=== PATIENT | male | born 1945 | race Caucasian/White ===

== ENCOUNTER 2019-10-24 14:17 | Emergency (ER) | payer OTHER ==
--- NOTE | 2019-10-24 15:10 | ED Physician Documentation ---
History of Present Illness - Stated complaint Stated Complaint: WEAKNESS - Chief complaint Chief Complaint: Neuro - History obtained from History obtained from: Patient - Additonal information Additional information: 74-year-old male presents to the emergency department for generalized weakness. He is a poor historian and I am unable to tell if he is confused at baseline. He reports that he has fallen to the ground twice in the last week and been unable to get up. I am not clear if these are mechanical falls or if he has had syncope.His responses are slow when questioned but he does seem to know that he is here at the hospital in [place]. He denies chest pain abdominal pain vomiting or diarrhea. He states that he takes 2 medications Paxil and amlodipine. He thinks there may be more but he is not sure. Review of Systems Unable to obtain: Other (? pt confusion) PD PAST MEDICAL HISTORY - Past Medical History Past Medical History: No - Past Surgical History Past Surgical History: Yes - Present Medications Home Medications: Ambulatory Orders Medication Instructions Recorded Confirmed Home Medications Unobtainable 10/24/19 10/24/19 [HOME MEDICATIONS UNOBTAINABLE] - Allergies Allergies/Adverse Reactions: Allergies Allergy/AdvReac Type Severity Reaction Status Date / Time No Known Drug Allergies Allergy Verified 10/24/19 14:29 - Social History Does the pt smoke?: No Smoking Status: Never smoker Does the pt drink ETOH?: No Does the pt have substance abuse?: No - Immunizations Immunizations are current?: Yes PD ED PE EXPANDED - General General: Alert, No acute distress - Neck Neck: No tenderness. No: Adenopathy - Cardiac Cardiac: Regular Rate, Regularly irregular, Radial strong equal, Femoral strong equal, Pedal strong equal, Cap refill < 2 sec - Respiratory Respiratory: Clear to ausultation johny. No: Distress, Labored - Abdomen Abdomen: Normal Bowel sounds. No: Tender to palpation, Rebound, Guarding - Derm Derm: Normal color, Pale - Extremities Extremities: Normal. No: Pedal edema R, Pedal edema L, Pedal edema bilateral - Neuro Neuro: Alert and Oriented X 3, CNII-XII intact, Normal finger nose, Normal speech. No: Nystagmus - GCS Eye Opening: Spontaneous Motor: Obeys Commands Verbal: Oriented Total: 15 Results - Vitals Vitals: Vital Signs - 24 hr 10/24/19 10/24/19 10/24/19 14:25 15:29 16:00 Temperature 36.4 C L Heart Rate 86 71 68 Respiratory 16 17 18 Rate Blood Pressure 123/82 H 126/74 128/69 O2 Saturation 96 99 98 10/24/19 10/24/19 10/24/19 16:14 16:30 16:58 Temperature Heart Rate 70 69 71 Respiratory 20 19 16 Rate Blood Pressure 128/69 118/68 118/68 O2 Saturation 99 100 99 Oxygen O2 Source Room air - EKG (time done) 1427 Rate: Rate (enter#) (83) Rhythm: NSR [place]: Normal Intervals: Normal CT QRS: Normal Ischemia: Non specific changes, Other Compare to prior EKG: Old EKG unavailable (Mobilized T wave flattening) - Labs Labs: Laboratory Tests 10/24/19 10/24/19 10/24/19 16:23 16:23 16:23 WBC 11.8 H RBC 4.35 L Hgb 13.3 L Hct 39.4 L MCV 90.6 MCH 30.6 MCHC 33.8 RDW 13.7 Plt Count 172 MPV 11.8 H Neut # (Auto) 9.9 H Lymph # (Auto) 0.8 L Kem[place] # (Auto) 1.1 H Eos # (Auto) 0.0 Baso # (Auto) 0.0 Absolute Nucleated RBC 0.00 Nucleated RBC % 0.0 Sodium 143 Potassium 3.6 Chloride 102 Carbon Dioxide 30 Anion Gap 11.0 BUN 46 H Creatinine 1.2 Estimated GFR (MDRD) 59 L Glucose 140 H Calcium 9.3 Total Bilirubin 1.2 H AST 33 ALT 25 Alkaline Phosphatase 56 Troponin I High Sens 10.1 Total Protein 7.6 Albumin 4.1 Globulin 3.5 Albumin/Globulin Ratio 1.2 Lipase 28 TSH 10/24/19 16:23 WBC RBC Hgb Hct MCV MCH MCHC RDW Plt Count MPV Neut # (Auto) Lymph # (Auto) [place] # (Auto) Eos # (Auto) Baso # (Auto) Absolute Nucleated RBC Nucleated RBC % Sodium Potassium Chloride Carbon Dioxide Anion Gap BUN Creatinine Estimated GFR (MDRD) Glucose Calcium Total Bilirubin AST ALT Alkaline Phosphatase Troponin I High Sens Total Protein Albumin Globulin Albumin/Globulin Ratio Lipase TSH 1.42 - Rads (name of study) CT head Radiology: Final report received (Normal cerebral volume loss and chronic microvascular ischemic changes. Greater than expected ventriculomegaly related to the underlying volume loss raising question of adult hydrocephalus normal pressure hydrocephalus.) PD MEDICAL DECISION MAKING - ED course Complexity details: reviewed results, d/w patient ED course: 74-year-old gentleman presents to the emergency department for what he reports as weakness in his knees. It seems that over the last few months he has become more confused and he reports that he is falling more frequently. This is corroborated by speaking with his neighbors who are frequently involved in helping him with paying for bills and grocery shopping. - His labs today are without any focal findings. However the head CT shows some ventriculomegaly concerning for normal pressure hydrocephalus. - 1708: paging neurology [facility] 1725: I have spoken with Neurologist Dr. Rommel santos with the [facility]. [facility] Given the chronicity of his symptoms and the gradual decli ne over time she does not feel that emergent transfer is necessary today. She reports that the neurology department at the [facility] will call the patient tomorrow to arrange follow-up. - With the patient's permission I have discussed this ED visit his labs and a head CT findings with his friend Naun who has been assisting him at home. I have advised that the [facility] will be calling to arrange follow-up with the neurology department. I have also advised that the patient should be scheduled to see his primary care provider very soon. He is to return to the emergency department for worsening symptoms, any focal neuro deficits, fevers or if they feel that he is not safe at home. - Patient has ambulated with the RN at the bedside. He typically uses a walker when at home. Patient was advised to always use the walker while at home Departure - Departure Disposition: 01 Home, Self Care Clinical Impression: Weakness, Hydrocephalus in adult Condition: Serious Record reviewed to determine appropriate education?: Yes Comments: Karel it is very important that you schedule follow-up with your primary care doctor as soon as possible. Your head CT shows that you may be developing a condition called to hydrocephalus which is a mild swelling in the ventricles of the brain. I have spoken with the neurologist at the [facility] their office will be giving you a call tomorrow to arrange follow-up. Always use your walker when walking at home. If you feel that your weakness is worsening, you have worsening confusion any fevers or weakness in your arms or legs then please return immediately to the emergency department
--- NOTE | 2019-10-24 15:11 | XRAY Report ---
PROCEDURE: Chest 1 View X-Ray INDICATIONS: Chest Pain TECHNIQUE: One view of the chest was acquired. COMPARISON: None available FINDINGS: Surgical changes and devices: None. Lungs and pleura: No pleural effusions or pneumothorax. Lungs are clear. Mediastinum: Mediastinal contours appear normal. Tortuous and atherosclerotic thoracic aorta. Heart size is normal. Bones and chest wall: No suspicious bony lesions. Moderate degenerative disease in the glenohumeral joint on the left. Overlying soft tissues appear unremarkable. IMPRESSION: No acute cardiopulmonary disease. Reviewed by: Liz Otto MD on 10/24/2019 2:09 PM [facility] Approved by: Liz Otto MD on 10/24/2019 2:09 PM [facility] Station ID: [id number]
--- NOTE | 2019-10-24 15:45 | CT Report ---
PROCEDURE: HEAD WO INDICATIONS: Confusion TECHNIQUE: Noncontrast 4.5 mm thick angled axial sections acquired from the foramen magnum to the vertex. For r adiation dose reduction, the following was used: automated exposure control, adjustment of mA and/or kV according to patient size. COMPARISON: None. FINDINGS: Image quality: Excellent. CSF spaces: There is global cerebral volume loss with passive expansion of the ventricles and extra- axial spaces. The degree of ventricular enlargement appears subjectively greater than expected in pro portion to the underlying volume loss, raising question of adult hydrocephalus (normal pressure hydro cephalus). There is no extra-axial fluid collection. Brain: Mild to moderate chronic microvascular ischemic changes are present. No evidence of cerebral e benita or acute ischemia. No acute intracranial hemorrhage demonstrated. Skull and face: Calvarium and visualized facial bones are intact, without suspicious lesions. Sinuses: Visualized sinuses and mastoids are clear. IMPRESSION: Normal cerebral volume loss and chronic microvascular ischemic changes. Greater than exp ected ventriculomegaly related to the underlying volume loss, raising question of adult hydrocephalus (normal pressure hydrocephalus). Correlate with clinical symptoms. CSF pressure measurement may be h elpful. Reviewed by: Delvis Lunsford MD on 10/24/2019 3:44 PM PDT Approved by: Delvis Lunsford MD on 10/24/2019 3:44 PM PDT Station ID: [id number]
[2019-10-24 16:32] LABS: BASOPHILS % (AUTO) 0.3 %; EOSINOPHILS % (AUTO) 0.1 %; HGB - HEMOGLOBIN 13.3 g/dL (14.0-18.0); LYMPHOCYTES # (AUTO) 0.8 10^3/uL (1.5-3.5); LYMPHOCYTES % (AUTO) 6.5 %; MEAN CORPUSCULAR HEMOGLOBIN 30.6 pg (27.0-31.0); MEAN CORPUSCULAR HGB CONC 33.8 g/dL (32.0-36.0); MEAN CORPUSCULAR VOLUME 90.6 fL (80.0-94.0); MEAN PLATELET VOLUME 11.8 fL (7.4-11.4); MONOCYTES # (AUTO) 1.1 10^3/uL (0.0-1.0); MONOCYTES % (AUTO) 9.3 %; NEUTROPHILS # (AUTO) 9.9 10^3/uL (1.5-6.6); NEUTROPHILS % (AUTO) 83.4 %; PLT - PLATELET COUNT 172 10^3/uL (130-450); RED BLOOD COUNT 4.35 10^6/uL (4.70-6.10); RED CELL DISTRIBUTION WIDTH 13.7 % (12.0-15.0); WHITE BLOOD COUNT 11.8 x10^3/uL (4.8-10.8)
[2019-10-24 16:43] LABS: ALBUMIN 4.1 g/dL (3.2-5.5); ALBUMIN/GLOBULIN RATIO 1.2 (1.0-2.2); BILIRUBIN,TOTAL 1.2 mg/dL (0.2-1.0); CALCIUM 9.3 mg/dL (8.5-10.3); CREATININE 1.2 mg/dL (0.6-1.2); TOTAL PROTEIN 7.6 g/dL (6.7-8.2)
[2019-10-24 18:55] VITALS: BP 113/71
== END 2019-10-24 18:57 | disposition home or self-care (01) ==
LOC: EDUNIT# → ED 14:17
DX: G91.9 Hydrocephalus, unspecified (principal); R53.1 Weakness; Z74.09 Other reduced mobility; Z91.81 History of falling
CPT/HCPCS: 70450; 71045; 80053; 83690; 84443; 84484; 85025; 93005; 99281; 99284

== ENCOUNTER 2020-03-15 04:13 | Emergency (ER) | payer OTHER ==
--- NOTE | 2020-03-15 04:23 | ED Physician Documentation ---
PD HPI UPPER EXT INJURY - Stated complaint Stated Complaint: RT SHOULDER PX - History obtained from History obtained from: Patient - History of Present Illness Location: Right, Shoulder Type of injury: No: Fall, Twist Where injury occurred: Home Timing - onset: How many days ago (He states his right posterior shoulder has been hurting him for the last several days and significantly increased overnight tonight and awoke him. Denies fall or abrupt injury. He does walk with a walker.) Timing - duration: Days Timing - details: Gradual onset, Waxing and waning Worsened by: Moving. No: Palpating Associated symptoms: No: Weakness, Numbness, Swelling Similar symptoms before: Diagnosis (rotator cuff tendonitis and arthritis in the past.) Recently seen: Not recently seen Review of Systems Constitutional: denies: Fever, Chills Nose: denies: Rhinorrhea / runny nose, Congestion Throat: denies: Sore throat Respiratory: denies: Cough GI: denies: Nausea, Vomiting, Diarrhea Skin: denies: Rash, Lesions Musculoskeletal: reports: Joint pain (right posterior shoulder) Neurologic: denies: Focal weakness, Numbness PD PAST MEDICAL HISTORY - Past Medical History Musculoskeletal: Osteoarthritis Derm: None - Past Surgical History Past Surgical History: Yes - Present Medications Home Medications: Ambulatory Orders Medication Instructions Recorded Confirmed HYDROcod/ACETAM 5/325 [[place] 5/325] 1 ea PO Q6H PRN #12 tablet 03/15/20 Naproxen Sodium 275 mg PO BID #15 tablet 03/15/20 - Allergies Allergies/Adverse Reactions: Allergies Allergy/AdvReac Type Severity Reaction Status Date / Time No Known Drug Allergies Allergy Verified 03/15/20 04:30 - Social History Does the pt smoke?: No Smoking Status: Never smoker Does the pt drink ETOH?: No Does the pt have substance abuse?: No - Immunizations Immunizations are current?: Yes PD ED PE NORMAL - Vitals Vital signs reviewed: Yes - General General: Alert and oriented X 3, No acute distress, Well developed/nourished - Neck Neck: Supple, no meningeal sign, No bony TTP, No adenopathy - Cardiac Cardiac: RRR, No murmur - Respiratory Respiratory: Clear bilaterally - Abdomen Abdomen: Soft, Non tender - Derm Derm: Normal color, Warm and dry - Extremities Extremities: Other (The right shoulder has some guarding of range of motion for abduction and he is limited for overhead and not above 90 degrees. There are some tenderness in the posterior aspect of the shoulder. No effusion. No redness no rash. No obvious deformity.) - Neuro Neuro: No motor deficit, No sensory deficit Results - Vitals Vitals: Vital Signs - 24 hr 03/15/20 03/15/20 03/15/20 04:15 04:27 05:49 Temperature 36.4 C L 36.4 C L 36.6 C Heart Rate 61 64 62 Respiratory 18 18 18 Rate Blood Pressure 116/66 116/66 115/63 O2 Saturation 100 100 Oxygen O2 Source Room air - Rads (name of study) right shoulder Radiology: Prelim report reviewed (No acute fractures or dislocation. Significant calcific tendinosis and arthritis of the joint.), See rad report PD MEDICAL DECISION MAKING - ED course Complexity details: reviewed results (calcific changes in rotator cuff. No fractures acutely. ), considered differential, d/w patient Departure - Departure Disposition: 01 Home, Self Care Clinical Impression: Calcific tendonitis of right shoulder region Right shoulder pain Qualifiers: Chronicity: chronic Qualified Code(s): M25.511 - Pain in right shoulder Condition: Stable Record reviewed to determine appropriate education?: Yes Instructions: ED Tendinitis Calcific Follow-Up: Karel Alfred MD [Provider Admit Priv/Credential] - Prescriptions: Naproxen Sodium 275 mg PO BID #15 tablet HYDROcod/ACETAM 5/325 [[place] 5/325] 1 ea PO Q6H PRN #12 tablet PRN Reason: Pain Comments: Your x-ray does not show any fractures nor dislocation. However there is a lot of arthritis in the shoulder and signs of parts counterman tendinitis with calcification. I presume this is flaring up now. As such some of the basis for treatment can be gentle range of motion and exercise without any heavy use of the shoulder. Anti-inflammatories may improve it in the short-term so use the naproxen twice daily for a week or so. Use it with food to not bother your stomach. To that add Tylenol 500 mg 4 times a day for pain. You can instead use hydrocodone every 6 hours if needed for worse pain in particular before bedtime. Follow-up with your primary care or orthopedics regarding further treatment of t he shoulder. Discharge Date/Time: 03/15/20 06:09
[2020-03-15] MEDS ORDERED: HYDROcod/ACETAM 5/325 MG TABLET PO STA (04:39)
[2020-03-15] MEDS ORDERED: HYDROcod/ACET 5/325 Prepack 4 PO STA (05:27)
[2020-03-15] MEDS ORDERED: DEXAMETHASONE 10 MG/ML VIAL PO STA (05:27)
[2020-03-15] MEDS ORDERED: CHERRY SYRUP 10 ML UDC PO ONE (05:27)
[2020-03-15 05:52] VITALS: BP 115/63
--- NOTE | 2020-03-15 07:09 | XRAY Report ---
PROCEDURE: Shoulder 3 View RT INDICATIONS: shoulder pain for a week, worsening TECHNIQUE: 3 views of the shoulder were acquired. COMPARISON: None. FINDINGS: Bones: No fractures or dislocations. No suspicious bony lesions. Visualized ribs appear intact. Advanced degenerative changes are seen, with severe glenohumeral joint space narrowing, with associat ed remodeling changes. Fragmented osteophytes are seen. Milder degenerative changes are seen elsewher e. Soft tissues: No suspicious soft tissue calcifications. The visualized lung demonstrates a normal a ppearance. IMPRESSION: No acute abnormality is seen. Severe glenohumeral joint degenerative change. Note: No significant discrepancy from the preliminary report. Reviewed by: Indra Moreland MD on 03/15/2020 6:08 AM [facility] Approved by: Indra Moreland MD on 03/15/2020 6:08 AM [facility] Station ID: [id number]
== END 2020-03-15 06:09 | disposition home or self-care (01) ==
LOC: EDBD → ED 04:13
DX: M75.31 Calcific tendinitis of right shoulder (principal)
CPT/HCPCS: 73030; 99283; 99284; A9270

== ENCOUNTER 2020-08-20 19:33 | Outpatient (CLI) | payer OTHER | END 2020-08-20 19:34 | disposition critical access hospital (66) | LOC: EMS 19:33 | DX: R29.810 Facial weakness (principal); G81.94 Hemiplegia, unspecified affecting left nondominant side | CPT/HCPCS: A0425; A0429 ==

== ENCOUNTER 2020-08-20 19:47 | Emergency (ER) | payer OTHER ==
[2020-08-20] MEDS ORDERED: SODIUM CHLORIDE 0.9% 1,000 ML IV STA (19:49)
--- NOTE | 2020-08-20 20:22 | ED Physician Documentation ---
History of Present Illness - Stated complaint Stated Complaint: POSS STROKE - History obtained from History obtained from: Patient, EMS - Additonal information Additional information: 75-year-old man with history of Parkinson's, CVA, seizure disorder, living independently at home, presents with facial droop, left-sided weakness, and difficulty speaking for an indeterminate amount of time. He states that he fell at 6 PM and then was able to get back up and does think that he may have hit his head without LOC. A friend checked on him at 7 PM and then called 911. When asked exactly when his symptoms started, the patient is unable to specify but states that he thinks it may have been in the afternoon. Further history limited by patient acuity. Review of Systems Unable to obtain: Other (Review of systems limited by patient acuity) PD PAST MEDICAL HISTORY - Past Medical History Musculoskeletal: Osteoarthritis Derm: None - Past Surgical History Past Surgical History: Yes - Present Medications Home Medications: Ambulatory Orders Medication Instructions Recorded Confirmed HYDROcod/ACETAM 5/325 [[place] 5/325] 1 ea PO Q6H PRN #12 tablet 03/15/20 Naproxen Sodium 275 mg PO BID #15 tablet 03/15/20 Aspirin [Aspirin EC] 81 mg PO DAILY 08/20/20 08/20/20 Atenolol [Tenormin] 100 mg PO DAILY 08/20/20 08/20/20 Ezetimibe/Simvastatin 10 mg PO DAILY 08/20/20 08/20/20 [Ezetimibe-Simvastatin 10-10 mg] PARoxetine [Paxil] 40 mg PO DAILY 08/20/20 08/20/20 amLODIPine [Norvasc] 5 mg PO DAILY 08/20/20 08/20/20 - Allergies Allergies/Adverse Reactions: Allergies Allergy/AdvReac Type Severity Reaction Status Date / Time No Known Drug Allergies Allergy Verified 08/20/20 20:07 - Social History Does the pt smoke?: No Smoking Status: Never smoker Does the pt drink ETOH?: No Does the pt have substance abuse?: No - Immunizations Immunizations are current?: Yes - POLST Patient has POLST: No PD ED PE NORMAL - Vitals Vital signs reviewed: Yes - General General: Alert and oriented X 3, No acute distress, Well developed/nourished - HEENT HEENT: Atraumatic, PERRL, EOMI - Neck Neck: Supple, no meningeal sign - Cardiac Cardiac: RRR - Respiratory Respiratory: No respiratory distress, Clear bilaterally - Abdomen Abdomen: Non tender, Non distended - Derm Derm: Normal color - Extremities Extremities: No deformity - Neuro Neuro: Alert and oriented X 3, Other (Right-sided facial droop and left upper extremity drift to gravity. Mild aphasia. Cranial nerves II through XII otherwise intact, normal cerebellar testing) - Psych Psych: Normal mood, Normal affect Results - Vitals Vitals: Vital Signs - 24 hr 08/20/20 08/20/20 08/20/20 20:07 20:24 20:48 Temperature 36.6 C 36.6 C Heart Rate 71 71 73 Respiratory 16 16 24 Rate Blood Pressure 117/61 117/61 120/65 O2 Saturation 96 96 94 08/20/20 08/20/20 08/20/20 21:18 21:30 22:00 Temperature 36.5 C Heart Rate 75 79 76 Respiratory 20 22 24 Rate Blood Pressure 128/73 124/83 H 137/84 H O2 Saturation 100 98 92 08/20/20 08/20/20 22:30 23:00 Temperature 36.5 C Heart Rate 74 84 Respiratory 20 24 Rate Blood Pressure 132/86 H 125/91 H O2 Saturation 96 98 Oxygen O2 Source Room air - Labs Labs: Laboratory Tests 08/20/20 08/20/20 08/20/20 20:28 20:28 20:28 WBC 9.5 RBC 4.24 L Hgb 13.3 L Hct 38.4 L MCV 90.6 MCH 31.4 H MCHC 34.6 RDW 12.8 Plt Count 157 MPV 11.5 H Neut # (Auto) 6.8 H Lymph # (Auto) 1.5 [place] # (Auto) 0.8 Eos # (Auto) 0.3 Baso # (Auto) 0.0 Absolute Nucleated RBC 0.00 Nucleated RBC % 0.0 Sodium 135 Potassium 4.1 Chloride 100 L Carbon Dioxide 27 Anion Gap 8.0 BUN 27 H Creatinine 1.3 H Estimated GFR (MDRD) 54 L Glucose 100 Calcium 9.1 Total Bilirubin 1.2 H AST 19 ALT 13 Alkaline Phosphatase 58 Troponin I High Sens 4.8 Total Protein 7.3 Albumin 4.0 Globulin 3.3 Albumin/Globulin Ratio 1.2 Lipase 22 Nasal Adenovirus (PCR) Nasal B. parapertussis DNA (PCR) Nasal Coronavir 229E PCR Nasal Coronavir HKU1 PCR Nasal Coronavir NL63 PCR Nasal Coronavir OC43 PCR Nasal Enterovir/Rhinovir PCR Nasal Influenza B PCR Nasal Influenza A PCR Nasal Parainfluen 1 PCR Nasal Parainfluen 2 PCR Nasal Parainfluen 3 PCR Nasal Parainfluen 4 PCR Nasal RSV (PCR) Nasal B.pertussis DNA PCR Nasal C.pneumoniae (PCR) Garrett Human Metapneumo PCR Nasal M.pneumoniae (PCR) Nasal SARS-CoV-2 (PCR) 08/20/20 20:42 WBC RBC Hgb Hct MCV MCH MCHC RDW Plt Count MPV Neut # (Auto) Lymph # (Auto) [place] # (Auto) Eos # (Auto) Baso # (Auto) Absolute Nucleated RBC Nucleated RBC % Sodium Potassium Chloride Carbon Dioxide Anion Gap BUN Creatinine Estimated GFR (MDRD) Glucose Calcium Total Bilirubin AST ALT Alkaline Phosphatase Troponin I High Sens Total Protein Albumin Globulin Albumin/Globulin Ratio Lipase Nasal Adenovirus (PCR) NOT DETECTED Nasal B. parapertussis DNA (PCR) NOT DETECTED Nasal Coronavir 229E PCR NOT DETECTED Nasal Coronavir HKU1 PCR NOT DETECTED Nasal Coronavir NL63 PCR NOT DETECTED Nasal Coronavir OC43 PCR NOT DETECTED Nasal Enterovir/Rhinovir PCR NOT DETECTED Nasal Influenza B PCR NOT DETECTED Nasal Influenza A PCR NOT DETECTED Nasal Parainfluen 1 PCR NOT DETECTED Nasal Parainfluen 2 PCR NOT DETECTED Nasal Parainfluen 3 PCR NOT DETECTED Nasal Parainfluen 4 PCR NOT DETECTED Nasal RSV (PCR) NOT DETECTED Nasal B.pertussis DNA PCR NOT DETECTED Nasal C.pneumoniae (PCR) NOT DETECTED Garrett Human Metapneumo PCR NOT DETECTED Nasal M.pneumoniae (PCR) NOT DETECTED Nasal SARS-CoV-2 (PCR) NOT DETECTED PD MEDICAL DECISION MAKING - ED course ED course: Patient arrived and was brought directly to CT for CT head Noncon and CT angio. EMS reported that he had a fall at 6 PM and then a friend came over at 7 PM and called EMS because he had a facial droop, weakness, and difficulty speaking. 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 no evidence of bleeding. Telestroke evaluating at the bedside at 8:10 PM. high grade stenosis R carotid bulb >90%. L carotid 70% stenosis. mild intracranial narrowing but no focal thrombus or stenosis per radiology. 8:15pm decision made not to give tPA given patient is unable to elucidate when his symptoms started and we have no LSN time. He reports that he lives alone. not a candidate for thrombectomy since no large vessel occlusion on ct d/w patient again in regards to his symptoms and he is now saying that they may have started at noon. He provided a phone number of a family member but no one answered. significant difficulty with history. d/w Dr Waters at 9:15pm who will accept for transfer [facility]. Departure - Departure Disposition: 02 Transfer Acute Care Hosp Clinical Impression: Carotid stenosis, bilateral, Facial droop, Slurred speech, Weakness Condition: Stable Discharge Date/Time: 08/20/20 23:28
[2020-08-20] MEDS ORDERED: IOVERSOL 320 100 ML VIAL IVP ONE ×2 (20:23→21:51)
--- NOTE | 2020-08-20 20:24 | CT Report ---
PROCEDURE: HEAD WO INDICATIONS: stroke. Left-sided weakness and right facial droop. TECHNIQUE: Noncontrast 4.5 mm thick angled axial sections acquired from the foramen magnum to the vertex. For r adiation dose reduction, the following was used: automated exposure control, adjustment of mA and/or kV according to patient size. COMPARISON: 10/24/2019. FINDINGS: Image quality: There is mild motion artifact slightly limiting evaluation. CSF spaces: There is moderate cerebral volume loss with prominence of the ventricles and sulci. Basa l cisterns are patent. No extra-axial fluid collections. Brain: No hemorrhage, mass, or mass effect. Choe-white matter interface appears preserved. A focal h ypodensity redemonstrated within the right caudate head consistent with sequelae of a prior infarct. There are periventricular and subcortical white matter hypodensities consistent with mild chronic sma ll vessel skin changes. Skull and face: Calvarium and visualized facial bones are intact, without suspicious lesions. Sinuses: Visualized sinuses and mastoids are clear. IMPRESSION: 1. No definite acute intracranial abnormality. Specifically, no imaging contraindications to TPA iden tified. 2. Moderate cerebral volume loss and mild chronic white matter small vessel ischemic changes. An old lacunar infarct in the right caudate head is redemonstrated. Findings discussed with the emergency room physician on 08/20/2020 at 8:17 PM. Reviewed by: Ted Hunt MD on 08/20/2020 8:22 PM PDT Approved by: Ted Hunt MD on 08/20/2020 8:22 PM PDT Station ID: [id number]
[2020-08-20 20:33] LABS: BASOPHILS % (AUTO) 0.3 %; EOSINOPHILS # (AUTO) 0.3 10^3/uL (0.0-0.7); EOSINOPHILS % (AUTO) 2.9 %; HCT - HEMATOCRIT 38.4 % (42.0-52.0); HGB - HEMOGLOBIN 13.3 g/dL (14.0-18.0); LYMPHOCYTES # (AUTO) 1.5 10^3/uL (1.5-3.5); LYMPHOCYTES % (AUTO) 16.1 %; MEAN CORPUSCULAR HEMOGLOBIN 31.4 pg (27.0-31.0); MEAN CORPUSCULAR HGB CONC 34.6 g/dL (32.0-36.0); MEAN CORPUSCULAR VOLUME 90.6 fL (80.0-94.0); MEAN PLATELET VOLUME 11.5 fL (7.4-11.4); MONOCYTES # (AUTO) 0.8 10^3/uL (0.0-1.0); MONOCYTES % (AUTO) 8.8 %; NEUTROPHILS # (AUTO) 6.8 10^3/uL (1.5-6.6); NEUTROPHILS % (AUTO) 71.5 %; PLT - PLATELET COUNT 157 10^3/uL (130-450); RED BLOOD COUNT 4.24 10^6/uL (4.70-6.10); RED CELL DISTRIBUTION WIDTH 12.8 % (12.0-15.0); WHITE BLOOD COUNT 9.5 x10^3/uL (4.8-10.8)
--- NOTE | 2020-08-20 20:41 | CT Report ---
PROCEDURE: ANGIO HEAD W/WO INDICATIONS: stroke CONTRAST: IV CONTRAST: Optiray 320 ml: 80 PO CONTRAST: *NO PO CONTRAST TECHNIQUE: Precontrast 4.5 mm thick angled axial sections acquired from the foramen magnum to the vertex. Afte r the administration of intravenous contrast, 1 mm thick sections acquired through the [place] of [place] is. Postcontrast 4.5 mm thick sections then re-acquired from the foramen magnum to the vertex. 3-di mensional aatodma-abybhqwwm-psulrscjhx (MIP) and/or volume rendering reformats were acquired of the c entral intracranial vasculature. For radiation dose reduction, the following was used: automated ex posure control, adjustment of mA and/or kV according to patient size. COMPARISON: CT head 10/24/2019. FINDINGS: Image quality: There is mild motion artifact. Anterior circulation: There is vascular calcification along the cavernous segments of the internal c arotid arteries were associated moderate narrowing. The paired anterior cerebral arteries appear fernando nt bilaterally. The middle cerebral arteries appear patent bilaterally. There is mild segmental narro wing of less than 50% within the M2 segment of the left middle cerebral artery. The anterior communic ating artery is patent. No high-grade stenosis, occlusion, or filling defects. No cerebral aneurysm identified. Posterior circulation: Visualized portions of the vertebral arteries demonstrate enhancement and jamal n to form the basilar artery. There is moderate to severe segmental narrowing of the distal left vert ebral artery. The basilar artery is patent along its course. The posterior cerebral arteries are pat ent bilaterally. No high-grade stenosis, occlusion, or filling defects. No cerebral aneurysm identif ied. CSF spaces: There is moderate cerebral volume loss with prominence of ventricles and sulci. Basal cis terns are patent. No extra-axial fluid collections. Brain: No intracranial hematoma collections, mass, or mass effect. Mild chronic white matter small v essel ischemic changes redemonstrated. An old lacunar infarct in the right caudate head is also again noted. Choe-white matter interface appears grossly preserved. Skull and face: Calvarium and facial bones appear intact, without suspicious lesions. Sinuses: Visualized sinuses and mastoids are clear. IMPRESSION: 1. No high-grade stenosis or occlusion of the central intracranial arteries. 2. Moderate segmental narrowing of the cavernous segments of the internal carotid arteries bilaterall y. 3. Mild segmental narrowing in the M2 segment of the left middle cerebral artery. Findings reported to Dr. Uribe on 08/20/2020 at 8:32 PM. Reviewed by: Ted Hunt MD on 08/20/2020 8:40 PM PDT Approved by: Ted Hunt MD on 08/20/2020 8:40 PM PDT Station ID: [id number]
--- NOTE | 2020-08-20 20:45 | CT Report ---
PROCEDURE: ANGIO NECK W INDICATIONS: stroke CONTRAST: IV CONTRAST: Optiray 320 ml: 80 PO CONTRAST: *NO PO CONTRAST TECHNIQUE: After the administration of intravenous contrast, 1.5 mm axial sections acquired from the aortic arch to the [place]. Coronal 3-D maximum intensity projection (MIP) and/or volume rendering ref ormats were then performed. For radiation dose reduction, the following was used: automated exposur e control, adjustment of mA and/or kV according to patient size. COMPARISON: Concurrent CTA of the head and CT of the head. CT head 10/24/2019. FINDINGS: Image quality: There is mild motion artifact limiting evaluation. Carotid system: The great vessels demonstrate conventional anatomy as they arise from the aortic arc h. The origins of the common carotid arteries appear patent. The common carotid arteries demonstrat e normal calibers and courses. There is bulky calcified plaque within the carotid bifurcation bilate rally. There is severe narrowing of approximately 90% within the proximal right carotid bulb. There i s narrowing of approximately 70% within the left carotid bulb. Severe focal narrowing is also present at the origin of the right external carotid artery. There is moderate narrowing of approximately 50% at the origin of the left external carotid artery. The subsequent internal carotid arteries demonstr ate normal caliber and course. There is calcification within the cavernous segments of the internal c arotid arteries bilaterally with associated moderate narrowing. Posterior circulation: There is calcified plaque at the origins of the vertebral arteries bilaterally with suspected moderate narrowing. Evaluation is limited by motion artifact. The more superior porti ons of the vertebral arteries demonstrate normal course and caliber. There is moderate segmental liana rowing within the distal left vertebral artery. The vertebral arteries join to form a patent appearin g basilar artery. Soft tissues: Visualized neck soft tissues demonstrate no suspicious abnormalities. The thyroid is normal in size and there are no incidental findings. Bones: No suspicious bony lesions. Visualized cervical spine appears normally aligned. IMPRESSION: 1. Bilateral narrowing in the carotid bulbs of approximately 90% on the right and 70% on the left. Fi franco discussed with Dr. Uribe on 08/20/2020 at 8:32 PM. 2. Bilateral suspected moderate narrowing at the origins of the vertebral arteries, with evaluation l imited by motion artifact. 3. Moderate segmental narrowing in the distal left vertebral artery. 4. Segmental calcified plaque within the cavernous segments of the internal carotid arteries with ass ociated moderate narrowing. The estimate of stenosis included in the report of the imaging study was calculated using the NASCET method Reviewed by: Ted Hunt MD on 08/20/2020 8:44 PM PDT Approved by: Ted Hunt MD on 08/20/2020 8:44 PM PDT Station ID: [id number]
[2020-08-20 20:51] LABS: ALBUMIN/GLOBULIN RATIO 1.2 (1.0-2.2); BILIRUBIN,TOTAL 1.2 mg/dL (0.2-1.0); CALCIUM 9.1 mg/dL (8.5-10.3); CREATININE 1.3 mg/dL (0.6-1.2); POTASSIUM 4.1 mmol/L (3.5-5.0); TOTAL PROTEIN 7.3 g/dL (6.7-8.2)
[2020-08-20 22:32] LABS: B. PARAPERTUSSIS- RESP PCR PAN NOT DETECTED; B. PERTUSSIS- RESP PCR PANEL NOT DETECTED; C. PNEUMONIAE- RESP PCR PANEL NOT DETECTED; CORONAVIRUS 229E-RESP PCR NOT DETECTED; CORONAVIRUS HKU1-RESP PCR NOT DETECTED; CORONAVIRUS NL63-RESP PCR NOT DETECTED; CORONAVIRUS OC43-RESP PCR NOT DETECTED; HUMAN METAPNEUMOVIRUS NOT DETECTED; INFLUENZA A- RESP PCR PANEL NOT DETECTED; INFLUENZA B - RESP PCR PANEL NOT DETECTED; M. PNEUMONIAE- RESP PCR PANEL NOT DETECTED; PARAINFLUENZA VIRUS 1 NOT DETECTED; PARAINFLUENZA VIRUS 2 NOT DETECTED; PARAINFLUENZA VIRUS 3 NOT DETECTED; PARAINFLUENZA VIRUS 4 NOT DETECTED; RHINOVIRUS/ENTEROVIRUS NOT DETECTED; RSV- RESP PCR PANEL NOT DETECTED; SARS-CoV-2 -RESP PCR PANEL NOT DETECTED
[2020-08-20 23:02] VITALS: BP 125/91
== END 2020-08-20 23:28 | disposition short-term general hospital (02) ==
LOC: EDUNIT# → EDBD → ED 19:47
DX: I65.23 Occlusion and stenosis of bilateral carotid arteries (principal); R29.810 Facial weakness; R47.81 Slurred speech; R53.1 Weakness; Z20.822 Contact with and (suspected) exposure to COVID-19
CPT/HCPCS: 0202U; 36415; 70450; 70496; 70498; 80053; 83690; 84484; 85025; 93005; 96360; 99285; Q9967

== ENCOUNTER 2020-08-20 23:28 | Outpatient (CLI) | payer OTHER | END 2020-08-20 23:29 | disposition short-term general hospital (02) | LOC: EMS 23:28 | PROVIDERS: ATTEND Emergency Medicine | DX: I63.9 Cerebral infarction, unspecified (principal); I65.29 Occlusion and stenosis of unspecified carotid artery | CPT/HCPCS: A0425; A0428 ==

== ENCOUNTER 2021-03-23 13:10 | Outpatient (CLI) | payer OTHER | END 2021-03-23 13:11 | disposition critical access hospital (66) | LOC: EMS 13:10 | DX: J02.9 Acute pharyngitis, unspecified (principal); R53.1 Weakness; R50.9 Fever, unspecified; R63.8 Other symptoms and signs concerning food and fluid intake | CPT/HCPCS: A0425; A0429 ==

== ENCOUNTER 2021-03-23 13:25 | Emergency (ER) | payer OTHER ==
[2021-03-23] MEDS ORDERED: SODIUM CHLORIDE 0.9% 1,000 ML IV STA (13:43)
--- NOTE | 2021-03-23 13:45 | ED Physician Documentation ---
History of Present Illness - Stated complaint Stated Complaint: WEAKNESS - Chief complaint Chief Complaint: General - Additonal information Additional information: 75-year-old male is brought to the emergency department for evaluation of gene ralized weakness. Patient reports that he developed a sore throat this morning about 3 AM with some associated cough and congestion. No fevers. Due to this he has not been drinking well. He does not have an obvious focal neuro deficit. For emergency medical services he was noted to be orthostatic with sitting and standing positions. Patient denies any vomiting or diarrhea. No chest pain, sh ortness of air or urinary symptoms. His blood glucose was 79 mg/dL. pt has a underlying hx of dementia and resides at [facility] Review of Systems Constitutional: denies: Fever, Chills Nose: reports: Rhinorrhea / runny nose Throat: reports: Sore throat Cardiac: denies: Chest pain / pressure, Palpitations Respiratory: denies: Dyspnea GI: denies: Abdominal Pain, Abdominal Swelling, Nausea, Vomiting : denies: Dysuria Skin: denies: Rash, Lesions Musculoskeletal: denies: Neck pain, Back pain Neurologic: reports: Generalized weakness PD PAST MEDICAL HISTORY - Past Medical History Musculoskeletal: Osteoarthritis Derm: None - Past Surgical History Past Surgical History: Yes - Present Medications Home Medications: Ambulatory Orders Medication Instructions Recorded Confirmed HYDROcod/ACETAM 5/325 [[place] 5/325] 1 ea PO Q6H PRN #12 tablet 03/15/20 Naproxen Sodium 275 mg PO BID #15 tablet 03/15/20 Aspirin [Aspirin EC] 81 mg PO DAILY 08/20/20 08/20/20 Atenolol [Tenormin] 100 mg PO DAILY 08/20/20 08/20/20 Ezetimibe/Simvastatin 10 mg PO DAILY 08/20/20 08/20/20 [Ezetimibe-Simvastatin 10-10 mg] PARoxetine [Paxil] 40 mg PO DAILY 08/20/20 08/20/20 amLODIPine [Norvasc] 5 mg PO DAILY 08/20/20 08/20/20 - Allergies Allergies/Adverse Reactions: Allergies Allergy/AdvReac Type Severity Reaction Status Date / Time No Known Drug Allergies Allergy Verified 03/23/21 13:44 - Social History Does the pt smoke?: No Smoking Status: Never smoker Does the pt drink ETOH?: No Does the pt have substance abuse?: No - Immunizations Immunizations are current?: Yes - POLST Patient has POLST: No PD ED PE EXPANDED - General General: Alert, No acute distress, Well developed/nourished - Cardiac Cardiac: Regular Rate, Radial strong equal, Pedal strong equal, Cap refill < 2 sec. No: Murmur Present - Respiratory Respiratory: Clear to ausultation johny. No: Distress, Labored - Abdomen Abdomen: Normal Bowel sounds. No: Tender to palpation - Derm Derm: Normal color, Warm and dry. No: Rash - Neuro Neuro: Alert and Oriented X 3, CNII-XII intact, Normal speech - GCS Eye Opening: Spontaneous Motor: Obeys Commands Verbal: Oriented Total: 15 Results - Vitals Vitals: Vital Signs - 24 hr 03/23/21 03/23/21 13:40 15:19 Temperature 36.3 C L Heart Rate 65 Heart Rate [ 80 Sitting] Heart Rate [ 82 Standing] Heart Rate [ 78 Supine] Respiratory 20 Rate Blood Pressure 139/96 H Blood Pressure 109/85 H [Sitting] Blood Pressure 111/66 [Standing] Blood Pressure 164/69 H [Supine] O2 Saturation 100 Oxygen O2 Source Room air - EKG (time done) 1405 Rate: Rate (enter#) (66) Rhythm: NSR [place]: Normal QRS: Normal Ischemia: Q waves (inferior leads) Compare to prior EKG: Unchanged from prior EKG Computer interpretation: Agree with computer - Labs Labs: Laboratory Tests 03/23/21 03/23/21 03/23/21 14:30 14:30 14:30 WBC 8.3 RBC 4.26 L Hgb 13.2 L Hct 38.7 L MCV 90.8 MCH 31.0 MCHC 34.1 RDW 12.7 Plt Count 117 L MPV 12.2 H Neut # (Auto) 6.0 Lymph # (Auto) 1.1 L [place] # (Auto) 1.3 H Eos # (Auto) 0.0 Baso # (Auto) 0.0 Absolute Nucleated RBC 0.00 Nucleated RBC % 0.0 Sodium 134 L Potassium 4.3 Chloride 98 L Carbon Dioxide 28 Anion Gap 8.0 BUN 25 H Creatinine 1.1 Estimated GFR (MDRD) 65 L Glucose 109 H Calcium 9.1 Total Bilirubin 0.9 AST 23 ALT 21 Alkaline Phosphatase 69 Troponin I High Sens 6.8 Total Protein 7.4 Albumin 4.4 Globulin 3.0 Albumin/Globulin Ratio 1.5 Lipase 24 Urine Color Urine Clarity Urine pH Ur Specific [place] Urine Protein Urine Glucose (UA) Urine Ketones Urine Occult Blood Urine Nitrite Urine Bilirubin Urine Urobilinogen Ur Leukocyte Esterase Ur Microscopic Review Urine Culture Comments Group A Strep Rapid 03/23/21 03/23/21 14:30 14:44 WBC RBC Hgb Hct MCV MCH MCHC RDW Plt Count MPV Neut # (Auto) Lymph # (Auto) [place] # (Auto) Eos # (Auto) Baso # (Auto) Absolute Nucleated RBC Nucleated RBC % Sodium Potassium Chloride Carbon Dioxide Anion Gap BUN Creatinine Estimated GFR (MDRD) Glucose Calcium Total Bilirubin AST ALT Alkaline Phosphatase Troponin I High Sens Total Protein Albumin Globulin Albumin/Globulin Ratio Lipase Urine Color YELLOW Urine Clarity CLEAR Urine pH 5.5 Ur Specific [place] >=1.030 H Urine Protein NEGATIVE Urine Glucose (UA) NEGATIVE Urine Ketones NEGATIVE Urine Occult Blood NEGATIVE Urine Nitrite NEGATIVE Urine Bilirubin NEGATIVE Urine Urobilinogen 0.2 (NORMAL) Ur Leukocyte Esterase NEGATIVE Ur Microscopic Review NOT INDICATED Urine Culture Comments NOT INDICATED Group A Strep Rapid Negative - Rads (name of study) CXR Radiology: Final report received (no acute process) PD MEDICAL DECISION MAKING - ED course Complexity details: reviewed results, re-evaluated patient, considered differential, d/w patient ED course: 75-year-old male presents the emergency department from [facility] for evaluation of a sore throat generalized weakness. EMS noted the patient had orthostatic blood pressures. On presentation the patient denied any fevers, chest pain or shortness of air. No abdominal pain nausea or vomiting. His abdominal and respiratory exam was unremarkable. Chest x-ray was without acute focal findings. We did do screening labs that showed no significant findings. in point, no leukocytosis acute kidney injury or finding of urinary infection. This gentleman was repleted with 1 L of crystalloid and on repeat he has no further orthostatic findings. He did repeat a sore throat. Rapid strep is negative. He did have some mild posterior oropharynx erythema. A Covid screen is pending though he is fully vaccinated. Patient was given 10 mg of Decadron to help with sore throat. At this time no emergent findings for his symptoms were found and he is stable for discharge back to [facility]. Emergent return precautions discussed. Departure - Departure Disposition: 01 Home, Self Care Clinical Impression: Sore throat, Generalized weakness Condition: Stable Record reviewed to determine appropriate education?: Yes Comments: Karel ragland are seen in the emergency department today for feeling generally weak as well as having a sore throat. Your rapid strep test is negative. We will order antibiotics only if it is positive. Your chest x-ray is normal. Your screening labs did not show any worrisome findings. You do not have infection in the urine. EMS found that your blood pressures were a little low when you went from standing to sitting. We did give you 1 L of IV fluids here in the emergency department and this has corrected We did give you a one-time dose of Decadron here in the emergency department which should help with the sore throat over the next few days. I do recommend that you take Tylenol or ibuprofen for any discomfort. It is important that you stay well-hydrated as dehydration can cause worsening weakness. If you feel that your symptoms are not improving then please return immediately to the ER for second evaluation.
--- NOTE | 2021-03-23 14:14 | XRAY Report ---
PROCEDURE: Chest 1 View X-Ray INDICATIONS: chest pain TECHNIQUE: One view of the chest was acquired. COMPARISON: 10/24/2019 FINDINGS: Surgical changes and devices: None. Lungs and pleura: No pleural effusions or pneumothorax. Lungs are clear. Mediastinum: Mediastinal contours appear normal. Heart size is normal. Bones and chest wall: No suspicious bony lesions. Overlying soft tissues appear unremarkable. IMPRESSION: No acute process. Reviewed by: Terra Petersen MD on 03/23/2021 2:12 PM PST Approved by: Terra Petersen MD on 03/23/2021 2:12 PM [facility] Station ID: [id number]
[2021-03-23 14:42] LABS: BASOPHILS % (AUTO) 0.1 %; EOSINOPHILS % (AUTO) 0.1 %; HCT - HEMATOCRIT 38.7 % (42.0-52.0); HGB - HEMOGLOBIN 13.2 g/dL (14.0-18.0); LYMPHOCYTES # (AUTO) 1.1 10^3/uL (1.5-3.5); LYMPHOCYTES % (AUTO) 12.7 %; MEAN CORPUSCULAR HGB CONC 34.1 g/dL (32.0-36.0); MEAN CORPUSCULAR VOLUME 90.8 fL (80.0-94.0); MEAN PLATELET VOLUME 12.2 fL (7.4-11.4); MONOCYTES # (AUTO) 1.3 10^3/uL (0.0-1.0); MONOCYTES % (AUTO) 15.1 %; NEUTROPHILS % (AUTO) 71.9 %; PLT - PLATELET COUNT 117 10^3/uL (130-450); RED BLOOD COUNT 4.26 10^6/uL (4.70-6.10); RED CELL DISTRIBUTION WIDTH 12.7 % (12.0-15.0); WHITE BLOOD COUNT 8.3 x10^3/uL (4.8-10.8)
[2021-03-23 14:53] LABS: BILIRUBIN,URINE NEGATIVE (NEGATIVE); GLUCOSE, URINE (UA) NEGATIVE (NEGATIVE); KETONES,URINE (UA) NEGATIVE (NEGATIVE); LEUKOCYTE ESTERASE, URINE NEGATIVE (NEGATIVE); NITRITE,URINE NEGATIVE (NEGATIVE); OCCULT BLOOD,URINE NEGATIVE (NEGATIVE); PH,URINE 5.5 PH (5.0-7.5); PROTEIN,URINE NEGATIVE (NEGATIVE); UROBILINOGEN,URINE 0.2 (NORMAL) E.U./dL (NORMAL)
[2021-03-23 14:55] LABS: RAPID STREP SCREEN Negative (Negative)
[2021-03-23 14:57] LABS: CLARITY,URINE CLEAR (CLEAR)
[2021-03-23 15:01] LABS: ALBUMIN 4.4 g/dL (3.2-5.5); ALBUMIN/GLOBULIN RATIO 1.5 (1.0-2.2); BILIRUBIN,TOTAL 0.9 mg/dL (0.2-1.0); CALCIUM 9.1 mg/dL (8.5-10.3); CREATININE 1.1 mg/dL (0.6-1.2); POTASSIUM 4.3 mmol/L (3.5-5.0); TOTAL PROTEIN 7.4 g/dL (6.7-8.2)
[2021-03-23] MEDS ORDERED: DEXAMETHASONE 10 MG/ML VIAL PO STA (15:30)
[2021-03-23] MEDS ORDERED: CHERRY SYRUP 10 ML UDC PO ONE (15:30)
[2021-03-23 15:59] VITALS: BP 163/80
== END 2021-03-23 16:37 | disposition home or self-care (01) ==
LOC: EDUNIT# → ED 13:25
DX: U07.1 COVID-19 (principal); R53.1 Weakness; E86.0 Dehydration; R07.0 Pain in throat; F03.90 Unspecified dementia, unspecified severity, without behavioral disturbance, psychotic disturbance, mood disturbance, and anxiety
CPT/HCPCS: 36415; 71045; 80053; 81003; 83690; 84484; 85025; 87070; 87430; 87635; 93005; 96360; 99284; A9270; 81001; 87086

== ENCOUNTER 2021-06-28 18:38 | Outpatient (CLI) | payer OTHER | END 2021-06-28 18:39 | disposition critical access hospital (66) | LOC: EMS 18:38 | DX: R53.1 Weakness (principal) | CPT/HCPCS: A0425; A0429 ==

== ENCOUNTER 2021-06-28 18:56 | Emergency (ER) | payer OTHER ==
--- NOTE | 2021-06-28 19:07 | ED Physician Documentation ---
History of Present Illness - Stated complaint Stated Complaint: WEAKNESS - Chief complaint Chief Complaint: General - History obtained from History obtained from: Patient, EMS - History of Present Illness Timing: How many years ago ("about a year ago", per patient) Pain level max: 0 Pain level now: 0 Improved by: no ameliorating factors Worsened by: weakness is manifest only with trying to stand and bear weight - Additonal information Additional information: BIBA for weakness. Patient tells me that he has had steadily increasing BLE weakness for about a year (per patient). h/o PD, seizure d/o, CVA, dementia. Denies recent injury, denies fever, denies pain except for chronic joint pain, particularly BUE. He says tonight he had difficulty ambulating with his walker due to weakness. Review of Systems Constitutional: reports: Reviewed and negative Eyes: denies: Loss of vision, Decreased vision Ears: denies: Ear pain Nose: denies: Congestion Throat: denies: Sore throat Cardiac: reports: Pedal edema. denies: Chest pain / pressure, Palpitations Respiratory: reports: Reviewed and negative GI: reports: Reviewed and negative : denies: Dysuria, Frequency, Incontinent PD PAST MEDICAL HISTORY - Past Medical History Past Medical History: Yes Musculoskeletal: Osteoarthritis Derm: None - Past Surgical History Past Surgical History: Yes - Present Medications Home Medications: Ambulatory Orders Medication Instructions Recorded Confirmed HYDROcod/ACETAM 5/325 [[place] 5/325] 1 ea PO Q6H PRN #12 tablet 03/15/20 Naproxen Sodium 275 mg PO BID #15 tablet 03/15/20 Aspirin [Aspirin EC] 81 mg PO DAILY 08/20/20 08/20/20 Atenolol [Tenormin] 100 mg PO DAILY 08/20/20 08/20/20 Ezetimibe/Simvastatin 10 mg PO DAILY 08/20/20 08/20/20 [Ezetimibe-Simvastatin 10-10 mg] PARoxetine [Paxil] 40 mg PO DAILY 08/20/20 08/20/20 amLODIPine [Norvasc] 5 mg PO DAILY 08/20/20 08/20/20 - Allergies Allergies/Adverse Reactions: Allergies Allergy/AdvReac Type Severity Reaction Status Date / Time No Known Drug Allergies Allergy Verified 03/23/21 13:44 - Social History Does the pt smoke?: No Smoking Status: Never smoker Does the pt drink ETOH?: No Does the pt have substance abuse?: No - Immunizations Immunizations are current?: Yes - POLST Patient has POLST: No PD ED PE NORMAL - Vitals Vital signs reviewed: Yes - General General: Alert and oriented X 3, No acute distress, Well developed/nourished - HEENT HEENT: Moist mucous membranes - Neck Neck: Supple, no meningeal sign - Cardiac Cardiac: RRR, No murmur - Respiratory Respiratory: No respiratory distress, Clear bilaterally - Abdomen Abdomen: Soft, Non tender - Derm Derm: Normal color, Warm and dry, No rash - Extremities Extremities: No deformity, No tenderness to palpate, Normal ROM s pain - Neuro Neuro: Alert and oriented X 3, 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 No: Normal speech Eye Opening: Spontaneous Motor: Obeys Commands Verbal: Oriented GCS Score: 15 Results - Vitals Vitals: Oxygen O2 Source Room air - Labs Labs: Laboratory Tests 06/28/21 06/28/21 06/28/21 20:10 20:46 21:16 WBC 8.8 RBC 4.07 L Hgb 12.5 L Hct 37.5 L MCV 92.1 MCH 30.7 MCHC 33.3 RDW 12.4 Plt Count 137 MPV 11.9 H Neut # (Auto) 5.9 Lymph # (Auto) 1.7 [place] # (Auto) 0.8 Eos # (Auto) 0.3 Baso # (Auto) 0.0 Absolute Nucleated RBC 0.00 Nucleated RBC % 0.0 Sodium 139 Potassium 4.1 Chloride 101 Carbon Dioxide 28 Anion Gap 10.0 BUN 22 H Creatinine 1.1 Estimated GFR (MDRD) 65 L Glucose 111 H Calcium 9.6 Total Bilirubin 0.7 AST 21 ALT 19 Alkaline Phosphatase 74 Total Protein 7.5 Albumin 4.3 Globulin 3.2 Albumin/Globulin Ratio 1.3 Lipase 29 Urine Color YELLOW Urine Clarity CLEAR Urine pH 6.5 Ur Specific [place] 1.020 Urine Protein NEGATIVE Urine Glucose (UA) NEGATIVE Urine Ketones NEGATIVE Urine Occult Blood NEGATIVE Urine Nitrite NEGATIVE Urine Bilirubin NEGATIVE Urine Urobilinogen 0.2 (NORMAL) Ur Leukocyte Esterase NEGATIVE Ur Microscopic Review NOT INDICATED Urine Culture Comments NOT INDICATED - Rads (name of study) cxr Radiology: Prelim report reviewed, See rad report CT head Radiology: Prelim report reviewed, See rad report PD MEDICAL DECISION MAKING - ED course Complexity details: reviewed results, re-evaluated patient, considered differential, d/w patient ED course: c/o bilateral lower extremity weakness gradually progressing over the past year. His test are unremarkable and nondiagnostic tonight including CTH, CXR, and blood tests. UA is negative/normal. He is given 500cc IV NS bolus for elevated BUN/creatinine ratio, then discharged. He has no fever, no back pain. Further emergent testing is not indicated nor is any specific treatment. Patient would ideally be reevaluated by his primary care provider in next 5-7 days, return if worse Departure - Departure Disposition: 01 Home, Self Care Clinical Impression: Weakness Condition: Stable Instructions: ED Weakness UKO Comments: Tonight's test results are unremarkable, which is reassuring but also does not provide a reason for your symptoms. The tests performed tonight were urinalysis (no evidence of infection) ,chest xray, CT scan of your head, and blood tests. Follow up with your primary care provider for reassessment of your symptoms. Call Wednesday to arrange for next available appointment. Discharge Date/Time: 06/28/21 22:28
[2021-06-28] MEDS ORDERED: SODIUM CHLORIDE 0.9% 500 ML IV STA (19:31)
--- NOTE | 2021-06-28 20:08 | CT Report ---
PROCEDURE: HEAD WO INDICATIONS: fall, generalized weakness TECHNIQUE: Noncontrast 4.5 mm thick angled axial sections acquired from the foramen magnum to the vertex. For r adiation dose reduction, the following was used: automated exposure control, adjustment of mA and/or kV according to patient size. COMPARISON: None. FINDINGS: Image quality: Excellent. CSF spaces: Moderate volume loss. Basal cisterns are patent. No midline shift. Lateral ventricles are symmetric. Lateral ventricles are prominent. Brain: Periventricular white matter hypoattenuation, likely chronic small vessel disease. No acute in tracranial hemorrhage or extra axial collections Intracranial atherosclerotic calcifications. Skull and face: Craniofacial structures are intact. IMPRESSION: No acute intracranial abnormality. Generalized volume loss and white matter disease agai n seen. Intracranial atherosclerosis. Reviewed by: Yfn Miles MD on 06/28/2021 8:07 PM PDT Approved by: Yfn Miles MD on 06/28/2021 8:07 PM PDT Station ID: [id number]
--- NOTE | 2021-06-28 20:10 | XRAY Report ---
PROCEDURE: Chest 2 View X-Ray INDICATIONS: generalized weakness TECHNIQUE: 2 view(s) of the chest. COMPARISON: March 23, 2021 FINDINGS: Surgical changes and devices: None. Lungs and pleura: No pleural effusions or pneumothorax. Lungs are clear. Mediastinum: Mediastinal contours are normal. Heart size is normal. Bones and chest wall: No suspicious bony abnormalities. Soft tissues appear unremarkable. High-gra de degenerative changes of both shoulders. IMPRESSION: No acute thoracic abnormality. Reviewed by: Yfn Miles MD on 06/28/2021 8:09 PM PDT Approved by: Yfn Miles MD on 06/28/2021 8:09 PM PDT Station ID: [id number]
[2021-06-28 20:31] LABS: ALBUMIN 4.3 g/dL (3.2-5.5); ALBUMIN/GLOBULIN RATIO 1.3 (1.0-2.2); BILIRUBIN,TOTAL 0.7 mg/dL (0.2-1.0); CALCIUM 9.6 mg/dL (8.5-10.3); CREATININE 1.1 mg/dL (0.6-1.2); POTASSIUM 4.1 mmol/L (3.5-5.0); TOTAL PROTEIN 7.5 g/dL (6.7-8.2)
[2021-06-28 20:55] LABS: BASOPHILS % (AUTO) 0.5 %; EOSINOPHILS # (AUTO) 0.3 10^3/uL (0.0-0.7); EOSINOPHILS % (AUTO) 2.8 %; HCT - HEMATOCRIT 37.5 % (42.0-52.0); HGB - HEMOGLOBIN 12.5 g/dL (14.0-18.0); LYMPHOCYTES # (AUTO) 1.7 10^3/uL (1.5-3.5); LYMPHOCYTES % (AUTO) 19.6 %; MEAN CORPUSCULAR HEMOGLOBIN 30.7 pg (27.0-31.0); MEAN CORPUSCULAR HGB CONC 33.3 g/dL (32.0-36.0); MEAN CORPUSCULAR VOLUME 92.1 fL (80.0-94.0); MEAN PLATELET VOLUME 11.9 fL (7.4-11.4); MONOCYTES # (AUTO) 0.8 10^3/uL (0.0-1.0); MONOCYTES % (AUTO) 9.3 %; NEUTROPHILS # (AUTO) 5.9 10^3/uL (1.5-6.6); NEUTROPHILS % (AUTO) 67.5 %; PLT - PLATELET COUNT 137 10^3/uL (130-450); RED BLOOD COUNT 4.07 10^6/uL (4.70-6.10); RED CELL DISTRIBUTION WIDTH 12.4 % (12.0-15.0); WHITE BLOOD COUNT 8.8 x10^3/uL (4.8-10.8)
[2021-06-28 21:13] VITALS: BP 120/80
[2021-06-28 21:24] LABS: BILIRUBIN,URINE NEGATIVE (NEGATIVE); GLUCOSE, URINE (UA) NEGATIVE (NEGATIVE); KETONES,URINE (UA) NEGATIVE (NEGATIVE); LEUKOCYTE ESTERASE, URINE NEGATIVE (NEGATIVE); NITRITE,URINE NEGATIVE (NEGATIVE); OCCULT BLOOD,URINE NEGATIVE (NEGATIVE); PH,URINE 6.5 PH (5.0-7.5); PROTEIN,URINE NEGATIVE (NEGATIVE); UROBILINOGEN,URINE 0.2 (NORMAL) E.U./dL (NORMAL)
[2021-06-28 21:30] LABS: CLARITY,URINE CLEAR (CLEAR)
== END 2021-06-28 22:28 | disposition home or self-care (01) ==
LOC: EDUNIT# → ED 18:56
DX: R53.1 Weakness (principal); F03.90 Unspecified dementia, unspecified severity, without behavioral disturbance, psychotic disturbance, mood disturbance, and anxiety
CPT/HCPCS: 36415; 80053; 81001; 81003; 83690; 85025; 87086; 96360; 99282

== ENCOUNTER 2021-06-28 22:33 | Outpatient (CLI) | payer OTHER | END 2021-06-28 22:34 | disposition home or self-care (01) | LOC: EMS 22:33 | PROVIDERS: ATTEND Emergency Medicine | DX: R53.1 Weakness (principal); R41.0 Disorientation, unspecified | CPT/HCPCS: A0425; A0428 ==

== ENCOUNTER 2021-07-09 19:27 | Outpatient (CLI) | payer OTHER | END 2021-07-09 23:59 | disposition EMS.NT | LOC: EMS 19:27 | DX: Z03.89 Encounter for observation for other suspected diseases and conditions ruled out (principal) ==

== ENCOUNTER 2021-07-23 19:41 | Outpatient (CLI) | payer OTHER | END 2021-07-23 19:42 | disposition critical access hospital (66) | LOC: EMS 19:41 | DX: R10.12 Left upper quadrant pain (principal) | CPT/HCPCS: A0425; A0429 ==

== ENCOUNTER 2021-07-23 19:57 | Emergency (ER) | payer OTHER ==
[2021-07-23 20:25] LABS: BASOPHILS % (AUTO) 0.4 %; EOSINOPHILS # (AUTO) 0.3 10^3/uL (0.0-0.7); EOSINOPHILS % (AUTO) 3.2 %; HCT - HEMATOCRIT 34.7 % (42.0-52.0); HGB - HEMOGLOBIN 11.8 g/dL (14.0-18.0); LYMPHOCYTES # (AUTO) 1.6 10^3/uL (1.5-3.5); LYMPHOCYTES % (AUTO) 19.4 %; MEAN CORPUSCULAR HEMOGLOBIN 30.3 pg (27.0-31.0); MEAN PLATELET VOLUME 12.1 fL (7.4-11.4); MONOCYTES # (AUTO) 0.7 10^3/uL (0.0-1.0); MONOCYTES % (AUTO) 7.8 %; NEUTROPHILS # (AUTO) 5.8 10^3/uL (1.5-6.6); PLT - PLATELET COUNT 142 10^3/uL (130-450); RED CELL DISTRIBUTION WIDTH 12.2 % (12.0-15.0); WHITE BLOOD COUNT 8.5 x10^3/uL (4.8-10.8)
--- NOTE | 2021-07-23 20:34 | ED Physician Documentation ---
PD HPI ABD PAIN - Stated complaint Stated Complaint: LUQ ABD PAIN X 3 DAYS - Chief complaint Chief Complaint: Abd Pain - History obtained from History obtained from: Patient - History of Present Illness Timing - onset: How many days ago (2) Timing - details: Abrupt onset Pain level now: 8 Quality: Pain Location: Other (left flank) Radiation: Lower back Improved by: Other (no ameliorating factors) Worsened by: Other (no exacerbating factors) Associated symptoms: No: Nausea, Vomiting, Diarrhea, Constipation, Chest pain Recently seen: Not recently seen - Additional information Additional information: Patient is BIBA. c/o left flank and left paralumbar pain x 2 days. He does not recall recent injury although he seems uncertain in his answer to this question. Denies nausea, vomiting. He initially tells me his pain started 5 days ago, but then asks what day to day is and when I tell him it is Wednesday, he says the pain started 2 days ago Review of Systems Cardiac: reports: Reviewed and negative Respiratory: reports: Reviewed and negative GI: reports: Reviewed and negative : denies: Dysuria, Frequency, Hematuria Musculoskeletal: reports: Back pain PD PAST MEDICAL HISTORY - Past Medical History Neuro: Dementia, CVA Musculoskeletal: Osteoarthritis Derm: None - Past Surgical History Past Surgical History: Yes - Present Medications Home Medications: Ambulatory Orders Medication Instructions Recorded Confirmed HYDROcod/ACETAM 5/325 [[place] 5/325] 1 ea PO Q6H PRN #12 tablet 03/15/20 Naproxen Sodium 275 mg PO BID #15 tablet 03/15/20 Aspirin [Aspirin EC] 81 mg PO DAILY 08/20/20 08/20/20 Atenolol [Tenormin] 100 mg PO DAILY 08/20/20 08/20/20 Ezetimibe/Simvastatin 10 mg PO DAILY 08/20/20 08/20/20 [Ezetimibe-Simvastatin 10-10 mg] PARoxetine [Paxil] 40 mg PO DAILY 08/20/20 08/20/20 amLODIPine [Norvasc] 5 mg PO DAILY 08/20/20 08/20/20 Ibuprofen [Motrin] 400 mg PO Q6H PRN #20 tablet 07/23/21 - Allergies Allergies/Adverse Reactions: Allergies Allergy/AdvReac Type Severity Reaction Status Date / Time No Known Drug Allergies Allergy Verified 07/23/21 20:03 - Social History Does the pt smoke?: No Smoking Status: Never smoker Does the pt drink ETOH?: No Does the pt have substance abuse?: No - Immunizations Immunizations are current?: Yes - POLST Patient has POLST: No PD ED PE NORMAL - Vitals Vital signs reviewed: Yes - General General: Alert and oriented X 3, No acute distress, Well developed/nourished - HEENT HEENT: Atraumatic, PERRL - Cardiac Cardiac: RRR, No murmur - Respiratory Respiratory: No respiratory distress, Clear bilaterally - Abdomen Abdomen: Normal bowel sounds, Soft, Non tender, Non distended - Back Back: No CVA TTP, Other (left posterior flank/paralumbar (left) echymosis and tenderness. no midline bony tenderness) Results - Vitals Vitals: Vital Signs - 24 hr 07/23/21 07/23/21 07/23/21 20:01 20:24 20:57 Temperature 37.2 C Heart Rate 99 100 90 Respiratory 16 22 18 Rate Blood Pressure 144/87 H 138/86 H O2 Saturation 96 97 100 07/23/21 07/23/21 07/23/21 22:24 23:02 23:27 Temperature 37.1 C Heart Rate 88 78 Respiratory 20 18 18 Rate Blood Pressure 128/89 H O2 Saturation 99 97 93 Oxygen O2 Source Room air - Labs Labs: Laboratory Tests 07/23/21 07/23/21 07/23/21 20:18 20:18 20:18 WBC 8.5 RBC 3.90 L Hgb 11.8 L Hct 34.7 L MCV 89.0 MCH 30.3 MCHC 34.0 RDW 12.2 Plt Count 142 MPV 12.1 H Neut # (Auto) 5.8 Lymph # (Auto) 1.6 [place] # (Auto) 0.7 Eos # (Auto) 0.3 Baso # (Auto) 0.0 Absolute Nucleated RBC 0.00 Nucleated RBC % 0.0 Sodium 140 Potassium 3.9 Chloride 102 Carbon Dioxide 26 Anion Gap 12.0 BUN 26 H Creatinine 1.2 Estimated GFR (MDRD) 59 L Glucose 114 H Calcium 9.2 Total Bilirubin 1.0 AST 20 ALT 16 Alkaline Phosphatase 69 Total Protein 6.7 Albumin 3.7 Globulin 3.0 Albumin/Globulin Ratio 1.2 Lipase 28 Urine Color Urine Clarity Urine pH Ur Specific [place] Urine Protein Urine Glucose (UA) Urine Ketones Urine Occult Blood Urine Nitrite Urine Bilirubin Urine Urobilinogen Ur Leukocyte Esterase Ur Microscopic Review Urine Culture Comments Ethyl Alcohol < 5.0 07/23/21 20:30 WBC RBC Hgb Hct MCV MCH MCHC RDW Plt Count MPV Neut # (Auto) Lymph # (Auto) [place] # (Auto) Eos # (Auto) Baso # (Auto) Absolute Nucleated RBC Nucleated RBC % Sodium Potassium Chloride Carbon Dioxide Anion Gap BUN Creatinine Estimated GFR (MDRD) Glucose Calcium Total Bilirubin AST ALT Alkaline Phosphatase Total Protein Albumin Globulin Albumin/Globulin Ratio Lipase Urine Color YELLOW Urine Clarity CLEAR Urine pH 6.5 Ur Specific [place] 1.020 Urine Protein NEGATIVE Urine Glucose (UA) NEGATIVE Urine Ketones NEGATIVE Urine Occult Blood NEGATIVE Urine Nitrite NEGATIVE Urine Bilirubin NEGATIVE Urine Urobilinogen 1 (NORMAL) Ur Leukocyte Esterase NEGATIVE Ur Microscopic Review NOT INDICATED Urine Culture Comments NOT INDICATED Ethyl Alcohol - Rads (name of study) CT head Radiology: Prelim report reviewed, See rad report CT A/P with IV contrast Radiology: Prelim report reviewed, See rad report PD MEDICAL DECISION MAKING - ED course Complexity details: reviewed old records, reviewed results, re-evaluated patient, considered differential, d/w patient ED course: c/o left flank and back pain. he provides fluctuating HPI regarding timing of onset and whether injury was involved. Because of uncertainty regarding possible injury and baseline mental status, CTH was performed and there are no concerning findings on this study. CT A/P performed due to left flank echymosis and tenderness. Radiologist does not note any acute findings, but I am seeing a nondisplaced fracture of the posterior 11th rib (left) and nondisplaced fracture of the tip of the transverse process (left) of L1. Departure - Departure Disposition: 01 Home, Self Care Clinical Impression: Rib fracture Qualifiers: Encounter type: initial encounter Rib fracture type: single rib Fracture type: closed Laterality: left Qualified Code(s): S22.32XA - Fracture of one rib, left side, initial encounter for closed fracture Fracture of transverse process of lumbar vertebra Qualifiers: Encounter type: initial encounter Fracture type: closed Qualified Code(s): S32.009A - Unspecified fracture of unspecified lumbar vertebra, initial encounter for closed fracture Condition: Good Instructions: ED Fx Rib Follow-Up: Nico Chandler MD [Primary Care Provider] - Prescriptions: Ibuprofen [Motrin] 400 mg PO Q6H PRN #20 tablet PRN Reason: Pain Comments: There appears to be a fracture of your left 11th rib in the back (where the rib articulates with the vertebra of the back). There also appears to be a tiny frac ture of the left transverse process of your first lumbar vertebra. These should both heal without needing any special attention or instruction other than no strenuous activity and avoiding activities that exacerbate the back pain. A prescription for ibuprofen has been provided; avoid other NSAIDs (such as naproxen) while taking the ibuprofen. If the naproxen seems to be more effective, you can switch back to that. Discharge Date/Time: 07/23/21 23:32
[2021-07-23 20:38] LABS: ALBUMIN 3.7 g/dL (3.2-5.5); ALBUMIN/GLOBULIN RATIO 1.2 (1.0-2.2); CALCIUM 9.2 mg/dL (8.5-10.3); CREATININE 1.2 mg/dL (0.6-1.2); POTASSIUM 3.9 mmol/L (3.5-5.0); TOTAL PROTEIN 6.7 g/dL (6.7-8.2)
[2021-07-23 20:53] LABS: BILIRUBIN,URINE NEGATIVE (NEGATIVE); GLUCOSE, URINE (UA) NEGATIVE (NEGATIVE); KETONES,URINE (UA) NEGATIVE (NEGATIVE); LEUKOCYTE ESTERASE, URINE NEGATIVE (NEGATIVE); NITRITE,URINE NEGATIVE (NEGATIVE); OCCULT BLOOD,URINE NEGATIVE (NEGATIVE); PH,URINE 6.5 PH (5.0-7.5); PROTEIN,URINE NEGATIVE (NEGATIVE); UROBILINOGEN,URINE 1 (NORMAL) E.U./dL (NORMAL)
[2021-07-23 20:54] LABS: CLARITY,URINE CLEAR (CLEAR)
[2021-07-23] MEDS ORDERED: MORPHINE 2 MG/ML CARPUJECT IVP STA (20:59)
[2021-07-23] MEDS ORDERED: IOPAMIDOL-300 100 ML VIAL ONE (21:23)
[2021-07-23] MEDS ORDERED: IOPAMIDOL-300 100 ML VIAL IVP ONE (21:36)
[2021-07-23] MEDS ORDERED: oxyCODONE 5 MG TABLET PO STA (22:20)
--- NOTE | 2021-07-23 22:46 | CT Report ---
PROCEDURE: HEAD WO INDICATIONS: possible recent fall, odd behavior tonight TECHNIQUE: Noncontrast 5 mm thick angled axial sections acquired from the foramen magnum to the vertex. For rad iation dose reduction, the following was used: automated exposure control, adjustment of mA and/or k V according to patient size. COMPARISON: CT head 07/11. FINDINGS: Image quality: There is motion artifact limiting evaluation. CSF spaces: There is moderate to severe cerebral volume loss with prominence of the ventricles and s ulci. Basal cisterns are patent. No extra-axial fluid collections. Brain: No definite intracranial hemorrhage, mass, or mass effect. There is a hypodensity in the righ t caudate head consistent with sequelae of prior lacunar infarcts. [place]-white matter interface otherw ise appears preserved. There are subcortical and periventricular white matter hypodensities consisten t with mild to moderate chronic small vessel ischemic changes. Skull and face: Calvarium and visualized facial bones are intact, without suspicious lesions. Sinuses: Visualized sinuses and mastoids are clear. IMPRESSION: 1. No definite acute intracranial abnormality. 2. Moderate cerebral volume loss and mild to moderate chronic white matter small vessel ischemic reyna ges. 3. Sequelae of prior lacunar infarct in the right caudate head. Reviewed by: Ted Marie MD on 07/23/2021 10:45 PM PDT Approved by: Ted Marie MD on 07/23/2021 10:45 PM PDT Station ID: [id number]
--- NOTE | 2021-07-23 22:50 | CT Report ---
PROCEDURE: Abdomen/Pelvis W INDICATIONS: left flank and back pain, echymosis CONTRAST: IV CONTRAST: Isovue 300 ml: 100 PO CONTRAST: *NO PO CONTRAST TECHNIQUE: After the administration of intravenous contrast, 5 mm thick sections acquired from the diaphragms to the symphysis. 5 mm thick coronal and sagittal reformats were acquired. For radiation dose reducti on, the following was used: automated exposure control, adjustment of mA and/or kV according to malik ent size. COMPARISON: None. FINDINGS: Image quality: Excellent. ABDOMEN: Lung bases: There is mild dependent atelectasis bilaterally. A minimal left pleural effusion is prese nt. Heart size is normal. There is a small hiatal hernia. Solid organs: Evaluation of the liver demonstrates no focal hepatic lesions. The gallbladder is surg ically absent. Biliary system is non dilated. The spleen is normal in size. Pancreas enhances normal ly without peripancreatic fat stranding or fluid collections. No adrenal nodules. Kidneys demonstra te no hydronephrosis. There are 2 nonobstructing stones within the right kidney, with the largest sto ne measuring up to 0.4 cm. There is a small nonobstructing stone within the left kidney measuring up to 0.2 cm Peritoneum and bowel: There are postsurgical changes consistent with prior right hemicolectomy. Batool l loops demonstrate normal wall thickness and caliber. There is colonic diverticulosis without acute diverticulitis. No free fluid or air. Nodes and vessels: No retroperitoneal or mesenteric adenopathy by size criteria. Aorta and inferior vena cava are normal in size. There is diffuse sclerotic vascular calcification. Miscellaneous: No ventral hernias. PELVIS: Genitourinary: Bladder wall thickness is normal. Miscellaneous: No inguinal hernias or adenopathy. Bones: No suspicious bony lesions. No vertebral body compression fractures. IMPRESSION: 1. Bilateral nephrolithiasis without evidence of obstructive uropathy. 2. Postsurgical changes consistent with prior right hemicolectomy. No evidence of bowel obstruction. 3. Colonic diverticulosis without acute diverticulitis. 4. Minimal left pleural effusion. Reviewed by: Ted Hunt MD on 07/23/2021 10:49 PM PDT Approved by: Ted Hunt MD on 07/23/2021 10:49 PM PDT Station ID: [id number]
[2021-07-23 23:32] VITALS: BP 128/89
== END 2021-07-23 23:32 | disposition home or self-care (01) ==
LOC: ED 19:57
DX: S22.32XA Fracture of one rib, left side, initial encounter for closed fracture (principal); S32.009A Unspecified fracture of unspecified lumbar vertebra, initial encounter for closed fracture; X58.XXXA Exposure to other specified factors, initial encounter
CPT/HCPCS: 36415; 70450; 74177; 80053; 80320; 81003; 83690; 85025; 96374; 99282; 99284; A9270; Q9967; 81001; 87086

== ENCOUNTER 2021-07-23 23:32 | Outpatient (CLI) | payer OTHER | END 2021-07-23 23:33 | disposition home or self-care (01) | LOC: EMS 23:32 | PROVIDERS: ATTEND Emergency Medicine | DX: R41.0 Disorientation, unspecified (principal); M89.8X8 Other specified disorders of bone, other site | CPT/HCPCS: A0425; A0428 ==

== ENCOUNTER 2021-07-26 22:31 | Outpatient (CLI) | payer OTHER | END 2021-07-26 23:59 | disposition critical access hospital (66) | LOC: EMS 22:31 | DX: R45.1 Restlessness and agitation (principal); R41.0 Disorientation, unspecified; R03.0 Elevated blood-pressure reading, without diagnosis of hypertension | CPT/HCPCS: A0425; A0429 ==

== ENCOUNTER 2021-07-26 22:45 | Emergency (ER) | payer OTHER ==
--- NOTE | 2021-07-27 00:33 | ED Physician Documentation ---
History of Present Illness - Stated complaint Stated Complaint: HTN - Chief complaint Chief Complaint: General - History obtained from History obtained from: Patient (limited HPI/ROS due to sleepy; however, he awakens to verbal with some gentle tactile stimuli) - History of Present Illness Timing: Unknown (patient does not provide any specific time frame (see narrative below)) Improved by: rest Worsened by: movement involving lower back - Additonal information Additional information: BIBA from [facility] for reported agitation. He was T+R from this ED 3 days ago; I was the ED MD on duty at that time and tests performed included blood tests, urinalysis, and CTH and CT A/P. The CTH was for some similar agitated behavior (not combative, but frequently was trying to get up and out of bed despite being asked to stay in bed as well as being disoriented; no acute CTH findings at that time). No concerning findings on blood tests and CT A/P per radiologists reading; having the benefit of the exam and having noted left flank/lower back echymosis and tenderness, I interpreted the CT A/P study as including left posterior 11th rib fracture and tiny nondisplaced fracture of left transverse process L1. Patient is sleepy during this H+P, so limited contribution to H+P. He tells me he is upset with the people where Im staying but does not provide further details when I ask him to clarify what he means. When I ask him how he feels physically, he says not too bad. He says he has been having low back pain but cannot provide a time frame as to when it started. Review of Systems Unable to obtain: Other (limited due to drowsiness, falls asleep several times during HPI/ROS) Constitutional: reports: Fatigue. denies: Fever Cardiac: denies: Chest pain / pressure Respiratory: denies: Dyspnea GI: denies: Abdominal Pain Musculoskeletal: reports: Back pain PD PAST MEDICAL HISTORY - Past Medical History Past Medical History: Yes Neuro: Dementia, CVA Musculoskeletal: Osteoarthritis Derm: None - Past Surgical History Past Surgical History: Yes - Present Medications Home Medications: Ambulatory Orders Medication Instructions Recorded Confirmed HYDROcod/ACETAM 5/325 [[place] 5/325] 1 ea PO Q6H PRN #12 tablet 03/15/20 07/26/21 Aspirin [Aspirin EC] 81 mg PO DAILY 08/20/20 07/26/21 Ezetimibe/Simvastatin 10 mg PO DAILY 08/20/20 07/26/21 [Ezetimibe-Simvastatin 10-10 mg] Ibuprofen [Motrin] 400 mg PO Q6H PRN #20 tablet 07/23/21 07/26/21 Atorvastatin Calcium [Lipitor] 80 mg PO QPM 07/26/21 07/26/21 DULoxetine [Cymbalta] 60 mg PO QPM 07/26/21 07/26/21 Diclofenac Sodium [Diclofenac 07/26/21 Sodium 3%] Memantine [Namenda] 5 mg PO DAILY 07/26/21 07/26/21 Quetiapine Fumarate [Seroquel] 50 mg PO BID 07/26/21 07/26/21 traZODone [Desyrel] 25 mg PO QPM 07/26/21 07/26/21 - Allergies Allergies/Adverse Reactions: Allergies Allergy/AdvReac Type Severity Reaction Status Date / Time No Known Drug Allergies Allergy Verified 07/26/21 22:51 - Social History Does the pt smoke?: No Smoking Status: Never smoker Does the pt drink ETOH?: No Does the pt have substance abuse?: No - Immunizations Immunizations are current?: Yes - POLST Patient has POLST: No PD ED PE NORMAL - Vitals Vital signs reviewed: Yes - General General: No acute distress, Well developed/nourished, Other (drowsy but awakens to voice, occasionally needing tactile stimulation (tapping shoulder), falls asleep several times during H+P. he is oriented x 2 (self, year; he says location is [place]. When I point out this is incorrect, he says [facility])) - HEENT HEENT: Atraumatic, PERRL, EOMI, Moist mucous membranes - Neck Neck: No bony TTP - Cardiac Cardiac: RRR - Respiratory Respiratory: No respiratory distress, Clear bilaterally - Abdomen Abdomen: Normal bowel sounds, Soft, Non tender, Non distended - Back Back: No spinal TTP, Other (as on previous visit, left posterior flank tenderness and echymosis over lower left ribs without crepitus. The echymosis appears several days old) - Extremities Extremities: No deformity, No tenderness to palpate Results - Vitals Vitals: Oxygen O2 Source Room air - Labs Labs: Laboratory Tests 07/27/21 07/27/21 00:44 00:44 WBC 7.6 RBC 3.61 L Hgb 11.0 L Hct 32.8 L MCV 90.9 MCH 30.5 MCHC 33.5 RDW 12.2 Plt Count 142 MPV 11.9 H Neut # (Auto) 5.7 Lymph # (Auto) 1.1 L [place] # (Auto) 0.5 Eos # (Auto) 0.3 Baso # (Auto) 0.0 Absolute Nucleated RBC 0.00 Nucleated RBC % 0.0 Sodium 140 Potassium 3.9 Chloride 104 Carbon Dioxide 28 Anion Gap 8.0 BUN 26 H Creatinine 1.1 Estimated GFR (MDRD) 65 L Glucose 115 H Calcium 8.8 Total Bilirubin 0.7 AST 16 ALT 14 Alkaline Phosphatase 73 Total Protein 6.3 L Albumin 3.5 Globulin 2.8 Albumin/Globulin Ratio 1.3 Lipase 26 PD MEDICAL DECISION MAKING - ED course Complexity details: reviewed old records, reviewed results, re-evaluated patient, considered differential, d/w patient ED course: Patient is calm throughout ED stay, mostly sleeping but awakens , albeit briefly, to verbal/tactile. He is in NAD and I cannot ascertain any chief complaint from patient beyond him being upset with someone where he is staying. He otherwise indicates he has been having low back pain, which correlates in location to his echymosis and tenderness on exam (also noted on previous exam). Tonights blood tests are unremarkable. No repeat imaging performed and he is discharged back to his [facility]. Departure - Departure Disposition: 01 Home, Self Care Clinical Impression: Rib fracture Qualifiers: Encounter type: subsequent encounter Rib fracture type: single rib Fracture type: closed Laterality: left Fracture healing: with routine healing Qualified Code(s): S22.32XD - Fracture of one rib, left side, subsequent encounter for fracture with routine healing Condition: Good Instructions: ED Fx Rib Discharge Date/Time: 07/27/21 03:46
[2021-07-27 00:53] LABS: BASOPHILS % (AUTO) 0.5 %; EOSINOPHILS # (AUTO) 0.3 10^3/uL (0.0-0.7); EOSINOPHILS % (AUTO) 3.8 %; HCT - HEMATOCRIT 32.8 % (42.0-52.0); LYMPHOCYTES # (AUTO) 1.1 10^3/uL (1.5-3.5); LYMPHOCYTES % (AUTO) 14.1 %; MEAN CORPUSCULAR HEMOGLOBIN 30.5 pg (27.0-31.0); MEAN CORPUSCULAR HGB CONC 33.5 g/dL (32.0-36.0); MEAN CORPUSCULAR VOLUME 90.9 fL (80.0-94.0); MEAN PLATELET VOLUME 11.9 fL (7.4-11.4); MONOCYTES # (AUTO) 0.5 10^3/uL (0.0-1.0); MONOCYTES % (AUTO) 6.6 %; NEUTROPHILS # (AUTO) 5.7 10^3/uL (1.5-6.6); NEUTROPHILS % (AUTO) 74.9 %; PLT - PLATELET COUNT 142 10^3/uL (130-450); RED BLOOD COUNT 3.61 10^6/uL (4.70-6.10); RED CELL DISTRIBUTION WIDTH 12.2 % (12.0-15.0); WHITE BLOOD COUNT 7.6 x10^3/uL (4.8-10.8)
[2021-07-27 01:02] LABS: ALBUMIN 3.5 g/dL (3.2-5.5); ALBUMIN/GLOBULIN RATIO 1.3 (1.0-2.2); BILIRUBIN,TOTAL 0.7 mg/dL (0.2-1.0); CALCIUM 8.8 mg/dL (8.5-10.3); CREATININE 1.1 mg/dL (0.6-1.2); POTASSIUM 3.9 mmol/L (3.5-5.0); TOTAL PROTEIN 6.3 g/dL (6.7-8.2)
--- NOTE | 2021-07-27 01:32 | XRAY Report ---
PROCEDURE: Chest 2 View X-Ray INDICATIONS: AMS TECHNIQUE: 2 view(s) of the chest. COMPARISON: Prior two-view chest 06/28/2021 reviewed.. FINDINGS: Surgical changes and devices: None. Lungs and pleura: No pleural effusions or pneumothorax. Lungs are mildly abnormal with a mild chron ic interstitial prominence accentuated now by reduced inspiratory volume.. Mediastinum: Mediastinal contours are normal. Heart size is normal. Bones and chest wall: No suspicious bony abnormalities. Soft tissues appear unremarkable. IMPRESSION: Chronic mild interstitial prominence, reduced inspiratory volume, no definite pneumonia found. Reviewed by: Peter Mazariegos MD on 07/27/2021 1:31 AM PDT Approved by: Peter Mazariegos MD on 07/27/2021 1:31 AM PDT Station ID: [id number]
[2021-07-27 03:40] VITALS: BP 130/76
== END 2021-07-27 03:46 | disposition home or self-care (01) ==
LOC: EDUNIT# → ED 22:45
DX: S22.32XA Fracture of one rib, left side, initial encounter for closed fracture (principal); X58.XXXA Exposure to other specified factors, initial encounter; R45.1 Restlessness and agitation; R41.0 Disorientation, unspecified; M54.50 Low back pain, unspecified
CPT/HCPCS: 36415; 80053; 83690; 85025; 99282; 99284

== ENCOUNTER 2021-07-27 03:49 | Outpatient (CLI) | payer OTHER | END 2021-07-27 03:50 | disposition home or self-care (01) | LOC: EMS 03:49 | PROVIDERS: ATTEND Emergency Medicine | DX: R41.0 Disorientation, unspecified (principal) | CPT/HCPCS: A0425; A0428 ==

== ENCOUNTER 2021-11-18 17:42 | Outpatient (CLI) | payer OTHER | END 2021-11-18 17:43 | disposition critical access hospital (66) | LOC: EMS 17:42 | DX: R10.31 Right lower quadrant pain (principal); K59.00 Constipation, unspecified; R53.1 Weakness; R26.2 Difficulty in walking, not elsewhere classified | CPT/HCPCS: A0425; A0429 ==

== ENCOUNTER 2021-11-18 18:01 | Emergency (ER) | payer OTHER ==
[2021-11-18] MEDS ORDERED: SODIUM CHLORIDE 0.9% 1,000 ML IV STA (18:38)
--- NOTE | 2021-11-18 18:39 | ED Physician Documentation ---
PD HPI ABD PAIN - Stated complaint Stated Complaint: CONSTIPATION - Chief complaint Chief Complaint: Abd Pain - History obtained from History obtained from: Patient, EMS - Additional information Additional information: 76-year-old gentleman brought in from an adult family home with a report of not having had a bowel movement for the last 4 days. He has a history of dementia, stroke. He is a poor historian. Paperwork that accompanies him shows that he developed a fever today to 100.0. He complains of rectal pain. Review of Systems Unable to obtain: Dementia PD PAST MEDICAL HISTORY - Past Medical History Neuro: Dementia, CVA Musculoskeletal: Osteoarthritis Derm: None - Past Surgical History Past Surgical History: Yes - Present Medications Home Medications: Ambulatory Orders Medication Instructions Recorded Confirmed HYDROcod/ACETAM 5/325 [[place] 5/325] 1 ea PO Q6H PRN #12 tablet 03/15/20 07/26/21 Aspirin [Aspirin EC] 81 mg PO DAILY 08/20/20 07/26/21 Ezetimibe/Simvastatin 10 mg PO DAILY 08/20/20 07/26/21 [Ezetimibe-Simvastatin 10-10 mg] Ibuprofen [Motrin] 400 mg PO Q6H PRN #20 tablet 07/23/21 07/26/21 Atorvastatin Calcium [Lipitor] 80 mg PO QPM 07/26/21 07/26/21 DULoxetine [Cymbalta] 60 mg PO QPM 07/26/21 07/26/21 Diclofenac Sodium [Diclofenac 07/26/21 Sodium 3%] Memantine [Namenda] 5 mg PO DAILY 07/26/21 07/26/21 Quetiapine Fumarate [Seroquel] 50 mg PO BID 07/26/21 07/26/21 traZODone [Desyrel] 25 mg PO QPM 07/26/21 07/26/21 Amox/Clav 875/125 [Augmentin] 1 each PO Q12H #20 tablet 11/18/21 Lactulose 10 gm PO QID PRN #150 ml 11/18/21 - Allergies Allergies/Adverse Reactions: Allergies Allergy/AdvReac Type Severity Reaction Status Date / Time No Known Drug Allergies Allergy Verified 07/26/21 22:51 - Social History Does the pt smoke?: No Smoking Status: Never smoker Does the pt drink ETOH?: No Does the pt have substance abuse?: No - Immunizations Immunizations are current?: Yes - POLST Patient has POLST: No PD ED PE NORMAL - Vitals Vital signs reviewed: Yes - General General: Other (He is alert and oriented to person and place. He knows the month but not the date. Poor historian for event events.) - HEENT HEENT: PERRL, EOMI - Neck Neck: Supple, no meningeal sign, No bony TTP - Cardiac Cardiac: No murmur, Other (Mild resting tachycardia) - Respiratory Respiratory: No respiratory distress, Clear bilaterally - Abdomen Abdomen: Normal bowel sounds, Soft, Non tender - Rectal Rectal: Other (Large fecal impaction which was disimpacted during exam and a fleets enema was placed.) - Back Back: No CVA TTP, No spinal TTP - Derm Derm: Normal color, Warm and dry - Extremities Extremities: Other (There is a bruise on the left tibial plateau but no corresponding tenderness or limited range of motion) - Neuro Eye Opening: Spontaneous Motor: Obeys Commands Verbal: Confused GCS Score: 14 Results - Vitals Vitals: Vital Signs - 24 hr 11/18/21 11/18/21 11/18/21 18:09 18:11 18:41 Temperature 37.8 C 36.4 C L Heart Rate 105 H 89 93 Respiratory 19 21 17 Rate Blood Pressure 148/92 H 157/80 H O2 Saturation 94 100 100 11/18/21 11/18/21 11/18/21 20:00 20:30 21:30 Temperature Heart Rate 97 100 94 Respiratory 18 18 21 Rate Blood Pressure 156/95 H 160/90 H 164/72 H O2 Saturation 97 100 99 11/18/21 11/18/21 22:30 22:55 Temperature Heart Rate 94 94 Respiratory 21 Rate Blood Pressure 164/72 H 164/72 H O2 Saturation 99 99 Oxygen O2 Source Room air - Labs Labs: Laboratory Tests 11/18/21 11/18/21 11/18/21 18:30 18:30 18:30 WBC 11.7 H RBC 3.83 L Hgb 11.6 L Hct 33.9 L MCV 88.5 MCH 30.3 MCHC 34.2 RDW 12.7 Plt Count 144 MPV 11.8 H Neut # (Auto) 9.7 H Lymph # (Auto) 1.1 L [place] # (Auto) 0.8 Eos # (Auto) 0.0 Baso # (Auto) 0.0 Absolute Nucleated RBC 0.00 Nucleated RBC % 0.0 Sodium 136 Potassium 4.2 Chloride 102 Carbon Dioxide 24 Anion Gap 10.0 BUN 38 H Creatinine 1.1 Estimated GFR (MDRD) 65 L Glucose 115 H Lactic Acid 1.1 Calcium 9.4 Total Bilirubin 0.9 AST 33 ALT 20 Alkaline Phosphatase 75 Total Protein 7.1 Albumin 4.2 Globulin 2.9 Albumin/Globulin Ratio 1.4 Urine Color Urine Clarity Urine pH Ur Specific Orange Urine Protein Urine Glucose (UA) Urine Ketones Urine Occult Blood Urine Nitrite Urine Bilirubin Urine Urobilinogen Ur Leukocyte Esterase Urine RBC Urine WBC Ur Epithelial Cells Ur Squamous Epith Cells Urine Bacteria Urine Culture Comments Nasal Adenovirus (PCR) Nasal B. parapertussis DNA (PCR) Nasal Coronavir 229E PCR Nasal Coronavir HKU1 PCR Nasal Coronavir NL63 PCR Nasal Coronavir OC43 PCR Nasal Enterovir/Rhinovir PCR Nasal Influenza B PCR Nasal Influenza A PCR Nasal Parainfluen 1 PCR Nasal Parainfluen 2 PCR Nasal Parainfluen 3 PCR Nasal Parainfluen 4 PCR Nasal RSV (PCR) Nasal B.pertussis DNA PCR Nasal C.pneumoniae (PCR) [place] Human Metapneumo PCR Nasal M.pneumoniae (PCR) Nasal SARS-CoV-2 (PCR) 11/18/21 11/18/21 19:35 20:06 WBC RBC Hgb Hct MCV MCH MCHC RDW Plt Count MPV Neut # (Auto) Lymph # (Auto) [place] # (Auto) Eos # (Auto) Baso # (Auto) Absolute Nucleated RBC Nucleated RBC % Sodium Potassium Chloride Carbon Dioxide Anion Gap BUN Creatinine Estimated GFR (MDRD) Glucose Lactic Acid Calcium Total Bilirubin AST ALT Alkaline Phosphatase Total Protein Albumin Globulin Albumin/Globulin Ratio Urine Color YELLOW Urine Clarity CLEAR Urine pH 6.0 Ur Specific Orange 1.015 Urine Protein NEGATIVE Urine Glucose (UA) NEGATIVE Urine Ketones NEGATIVE Urine Occult Blood NEGATIVE Urine Nitrite NEGATIVE Urine Bilirubin NEGATIVE Urine Urobilinogen 0.2 (NORMAL) Ur Leukocyte Esterase NEGATIVE Urine RBC 0-5 Urine WBC 4-5 Ur Epithelial Cells RARE Transitional Ur Squamous Epith Cells RARE Squamous Urine Bacteria None Seen Urine Culture Comments NOT INDICATED Nasal Adenovirus (PCR) NOT DETECTED Nasal B. parapertussis DNA (PCR) NOT DETECTED Nasal Coronavir 229E PCR NOT DETECTED Nasal Coronavir HKU1 PCR NOT DETECTED Nasal Coronavir NL63 PCR NOT DETECTED Nasal Coronavir OC43 PCR NOT DETECTED Nasal Enterovir/Rhinovir PCR NOT DETECTED Nasal Influenza B PCR NOT DETECTED Nasal Influenza A PCR NOT DETECTED Nasal Parainfluen 1 PCR NOT DETECTED Nasal Parainfluen 2 PCR NOT DETECTED Nasal Parainfluen 3 PCR NOT DETECTED Nasal Parainfluen 4 PCR NOT DETECTED Nasal RSV (PCR) NOT DETECTED Nasal B.pertussis DNA PCR NOT DETECTED Nasal C.pneumoniae (PCR) NOT DETECTED [place] Human Metapneumo PCR NOT DETECTED Nasal M.pneumoniae (PCR) NOT DETECTED Nasal SARS-CoV-2 (PCR) NOT DETECTED - Rads (name of study) CT abdomen pelvis shows rectal wall thickening and increased fecal load and other incidental findings per the report. Radiology: EMP read contemporaneously PD MEDICAL DECISION MAKING - ED course ED course: 76yo male with dementia presents with constipation from [facility]. Low grade fever and mild leukocytosis. CT A/P showing poss stercoral colitis but no other infectious etiology. CXR and labs o/w unremarkable. Good BMs here p disimpaction/enema. Also PO lactulose. Departure - Departure Disposition: 01 Home, Self Care Clinical Impression: Colitis Constipation Qualifiers: Constipation type: unspecified constipation type Qualified Code(s): K59.00 - Constipation, unspecified Fever Qualifiers: Fever type: unspecified Qualified Code(s): R50.9 - Fever, unspecified Condition: Good Record reviewed to determine appropriate education?: Yes Instructions: ED Constipation, ED Fever Unconf Cause Prescriptions: Amox/Clav 875/125 [Augmentin] 1 each PO Q12H #20 tablet Lactulose 10 gm PO QID PRN #150 ml PRN Reason: Constipation Comments: Karel was seen tonight for constipation, also a low-grade fever. Work-up dem onstrates some colitis and constipation/fecal impaction. After an enema he had a large bowel movement. He is started on antibiotics, first dose given here. He should return if worse or for any new symptoms. An alternative cause of the fever was sought after with a COVID/viral test, urinalysis, and chest x-ray none of which showed any pertinent positive findings. Recheck with his primary care physician in the next day or 2. Discharge Date/Time: 11/18/21 22:55
[2021-11-18 18:40] LABS: BASOPHILS % (AUTO) 0.3 %; EOSINOPHILS % (AUTO) 0.2 %; HCT - HEMATOCRIT 33.9 % (42.0-52.0); HGB - HEMOGLOBIN 11.6 g/dL (14.0-18.0); LYMPHOCYTES # (AUTO) 1.1 10^3/uL (1.5-3.5); LYMPHOCYTES % (AUTO) 9.4 %; MEAN CORPUSCULAR HEMOGLOBIN 30.3 pg (27.0-31.0); MEAN CORPUSCULAR HGB CONC 34.2 g/dL (32.0-36.0); MEAN CORPUSCULAR VOLUME 88.5 fL (80.0-94.0); MEAN PLATELET VOLUME 11.8 fL (7.4-11.4); MONOCYTES # (AUTO) 0.8 10^3/uL (0.0-1.0); NEUTROPHILS # (AUTO) 9.7 10^3/uL (1.5-6.6); NEUTROPHILS % (AUTO) 82.8 %; PLT - PLATELET COUNT 144 10^3/uL (130-450); RED BLOOD COUNT 3.83 10^6/uL (4.70-6.10); RED CELL DISTRIBUTION WIDTH 12.7 % (12.0-15.0); WHITE BLOOD COUNT 11.7 x10^3/uL (4.8-10.8)
[2021-11-18 18:54] LABS: ALBUMIN 4.2 g/dL (3.2-5.5); ALBUMIN/GLOBULIN RATIO 1.4 (1.0-2.2); BILIRUBIN,TOTAL 0.9 mg/dL (0.2-1.0); CALCIUM 9.4 mg/dL (8.5-10.3); CREATININE 1.1 mg/dL (0.6-1.2); POTASSIUM 4.2 mmol/L (3.5-5.0); TOTAL PROTEIN 7.1 g/dL (6.7-8.2)
--- NOTE | 2021-11-18 19:55 | CT Report ---
PROCEDURE: CT abdomen pelvis without contrast INDICATIONS: abd pain, contstipation TECHNIQUE: Noncontrast 5 mm thick sections acquired from the diaphragms to the symphysis. 5 mm coronal and sagi ttal reformats were then performed. For radiation dose reduction, the following was used: automated exposure control, adjustment of mA and/or kV according to patient size. COMPARISON: None. FINDINGS: Image quality: Excellent. ABDOMEN: Lung bases: Lung bases are clear. Heart size is normal. Dense atherosclerotic coronary artery Solid organs: Liver and spleen are normal in size. Gallbladder Pancreas is normal in contours. No adrenal nodules. Kidneys are normal in size, without hydronephrosis. Nonobstructing right renal calculi noted. Peritoneum and bowel: Moderate to fecal debris throughout the colon. There is wall thickening in the rectum reflect proctitis. No evidence of obstruction. Right colon anastomotic suture intact. Nodes and vessels: No retroperitoneal or mesenteric adenopathy by size criteria. Aorta and inferior vena cava are normal in caliber. As described vascular calcification noted in the aorta. Miscellaneous: No ventral hernias. PELVIS: Genitourinary: Bladder wall thickness is normal. Miscellaneous: No inguinal hernias or adenopathy. Bones: No suspicious bony lesions. No vertebral body compression fractures. Degenerative disc dise ase and arthropathy noted lower lumbar spine. IMPRESSION: Rectal wall thickening may reflect proctitis. Moderate to fecal debris throughout the colon without evidence of obstruction. Degenerative changes include the aortic and scarring vascular calcification and degenerative disc dis ease Reviewed by: Blue Lu MD on 11/18/2021 6:54 PM [facility] Approved by: Blue Lu MD on 11/18/2021 6:54 PM [facility]DT Station ID: [id number]
--- NOTE | 2021-11-18 20:02 | XRAY Report ---
PROCEDURE: Chest 1 View X-Ray INDICATIONS: fever TECHNIQUE: One view of the chest was acquired. COMPARISON: 08/06/2021 FINDINGS: Surgical changes and devices: None. Lungs and pleura: No pleural effusions or pneumothorax. Lungs are clear. Mediastinum: Mediastinal contours appear normal. Heart size is normal. Atherosclerotic vascular ca lcification noted in the aortic Bones and chest wall: No suspicious bony lesions. Overlying soft tissues appear unremarkable. Left [glenohumeral joint osteoarthritis IMPRESSION: No acute cardiopulmonary findings Reviewed by: Blue Lu MD on 11/18/2021 7:00 PM [facility] Approved by: Blue Lu MD on 11/18/2021 7:00 PM [facility]DT Station ID: [id number]
[2021-11-18 20:12] LABS: BILIRUBIN,URINE NEGATIVE (NEGATIVE); GLUCOSE, URINE (UA) NEGATIVE (NEGATIVE); KETONES,URINE (UA) NEGATIVE (NEGATIVE); LEUKOCYTE ESTERASE, URINE NEGATIVE (NEGATIVE); NITRITE,URINE NEGATIVE (NEGATIVE); OCCULT BLOOD,URINE NEGATIVE (NEGATIVE); PROTEIN,URINE NEGATIVE (NEGATIVE); UROBILINOGEN,URINE 0.2 (NORMAL) E.U./dL (NORMAL)
[2021-11-18] MEDS ORDERED: LACTULOSE 10 GM /15 ML UDC PO STA (20:13)
[2021-11-18 20:19] LABS: BACTERIA,URINE None Seen /HPF (None Seen); CLARITY,URINE CLEAR (CLEAR); EPITHELIAL CELLS,UR RARE Transitional /HPF (<= Few); RBC,URINE 0-5 /HPF (0-5); SQUAMOUS EPITHELIAL CELL,UR RARE Squamous (<= Few)
[2021-11-18 20:41] LABS: B. PARAPERTUSSIS- RESP PCR PAN NOT DETECTED; B. PERTUSSIS- RESP PCR PANEL NOT DETECTED; C. PNEUMONIAE- RESP PCR PANEL NOT DETECTED; CORONAVIRUS 229E-RESP PCR NOT DETECTED; CORONAVIRUS HKU1-RESP PCR NOT DETECTED; CORONAVIRUS NL63-RESP PCR NOT DETECTED; CORONAVIRUS OC43-RESP PCR NOT DETECTED; HUMAN METAPNEUMOVIRUS NOT DETECTED; INFLUENZA A- RESP PCR PANEL NOT DETECTED; INFLUENZA B - RESP PCR PANEL NOT DETECTED; M. PNEUMONIAE- RESP PCR PANEL NOT DETECTED; PARAINFLUENZA VIRUS 1 NOT DETECTED; PARAINFLUENZA VIRUS 2 NOT DETECTED; PARAINFLUENZA VIRUS 3 NOT DETECTED; PARAINFLUENZA VIRUS 4 NOT DETECTED; RHINOVIRUS/ENTEROVIRUS NOT DETECTED; RSV- RESP PCR PANEL NOT DETECTED; SARS-CoV-2 -RESP PCR PANEL NOT DETECTED
[2021-11-18] MEDS ORDERED: AMOX/CLAV 875 MG/125 MG TABLET PO STA (20:51)
[2021-11-18 21:32] VITALS: BP 164/72
== END 2021-11-18 22:55 | disposition home or self-care (01) ==
LOC: EDUNIT# → ED 18:01
DX: K52.9 Noninfective gastroenteritis and colitis, unspecified (principal); K59.00 Constipation, unspecified; R50.9 Fever, unspecified; Z20.822 Contact with and (suspected) exposure to COVID-19
CPT/HCPCS: 36415; 51701; 71045; 74176; 80053; 81001; 83605; 85025; 87040; 87633; 96360; 99282; 99284; A9270; 87086

== ENCOUNTER 2021-11-18 22:32 | Outpatient (CLI) | payer OTHER | END 2021-11-18 22:33 | disposition home or self-care (01) | LOC: EMS 22:32 | PROVIDERS: ATTEND Emergency Medicine | DX: R41.0 Disorientation, unspecified (principal); R53.1 Weakness; F03.90 Unspecified dementia, unspecified severity, without behavioral disturbance, psychotic disturbance, mood disturbance, and anxiety; K59.00 Constipation, unspecified | CPT/HCPCS: A0425; A0428 ==